=== PATIENT | female | born 1950 | race Caucasian/White ===

== ENCOUNTER → 2017-06-20 | Outpatient (CLI) | payer OTHER ==
[2017-06-20 13:19] LABS: HEMOGLOBIN A1C 6.3 % (4.5-5.6)
[2017-06-20 13:42] LABS: ALBUMIN 3.4 gm/dl (3.4-5.0); ALT/SGPT 18 U/L (12-78); AST/SGOT 17 U/L (15-37); BLOOD UREA NITROGEN 15 mg/dl (7-18); CALCIUM 8.7 mg/dl (8.5-10.1); CARBON DIOXIDE 27 mmol/L (21-32); CHOLESTEROL 130 mg/dl (0-200); CREATININE 0.74 mg/dl (0.60-1.20); GLUCOSE 105 mg/dl (70-99); POTASSIUM 3.9 mmol/L (3.5-5.1); SODIUM 144 mmol/L (136-145)
[2017-06-20 13:53] LABS: ALKALINE PHOSPHATASE 76 U/L (45-117); LDL CHOLESTEROL CALCULATED 67 mg/dl; TOTAL PROTEIN 6.9 gm/dl (6.4-8.2)
== END | disposition home or self-care (01) ==
LOC: C.LABPBG 08:38
PROVIDERS: ATTEND Family Medicine
DX: E03.9 Hypothyroidism, unspecified (principal); R73.03 Prediabetes; E78.5 Hyperlipidemia, unspecified; I10 Essential (primary) hypertension

== ENCOUNTER 2023-07-04 08:10 | Observation (INO) ==
--- NOTE | 2023-06-01 13:14 | PAT Medication Instructions ---
Medication Instructions Date of Service June 01, 2023 Home Medications Medication Instructions Recorded miscellaneous medical supply See Rx Instructions miscellaneous 03/29/19 .COMPLEX #1 ea dicyclomine 10 mg capsule 10 mg PO BID PRN abdominal pain 02/21/23 #180 caps metformin 500 mg tablet 500 mg PO BID #180 tabs 02/21/23 blood sugar diagnostic (Blood #100 ea 03/16/23 Glucose Test strips) lancets 33 gauge #100 ea 03/16/23 cefuroxime axetil 500 mg tablet 500 mg PO BID 7 days #14 tabs 05/08/23 omeprazole 20 mg capsule,delayed 20 mg PO DAILY PRN reflux #90 caps 05/08/23 release cholecalciferol (vitamin D3) 50 mcg (2,000 unit) tablet 2,000 units PO DAILY cyanocobalamin (vitamin B-12) 500 mcg tablet 1,000 mcg PO DAILY acetaminophen 500 mg oral powder packet (Tylenol Extra Strength) 500 mg PO Q6H PRN Pain dicyclomine 10 mg capsule 10 mg PO BID PRN abdominal pain metformin 500 mg tablet 500 mg PO BID cefuroxime axetil 500 mg tablet 500 mg PO BID 7 days omeprazole 20 mg capsule,delayed release 20 mg PO DAILY PRN reflux docusate sodium 100 mg capsule (Colace) 100 mg PO HS PRN Constipation levothyroxine 100 mcg tablet 100 mcg PO QAM lisinopril 10 mg tablet 10 mg PO HS magnesium oxide 250 mg PO DAILY Continue as directed cefuroxime axetil 500 mg tablet 500 mg PO BID 7 days omeprazole 20 mg capsule,delayed release 20 mg PO DAILY PRN reflux (if needed) DO NOT take the morning of surgery cholecalciferol (vitamin D3) 50 mcg (2,000 unit) tablet 2,000 units PO DAILY cyanocobalamin (vitamin B-12) 500 mcg tablet 1,000 mcg PO DAILY dicyclomine 10 mg capsule 10 mg PO BID PRN abdominal pain metformin 500 mg tablet 500 mg PO BID magnesium oxide 250 mg PO DAILY Take morning of surgery With a small sip of water, OTHERWISE NOTHING TO EAT OR DRINK AFTER MIDNIGHT: acetaminophen 500 mg oral powder packet (Tylenol Extra Strength) 500 mg PO Q6H PRN Pain (if needed) levothyroxine 100 mcg tablet 100 mcg PO QAM Take evening before surgery acetaminophen 500 mg oral powder packet (Tylenol Extra Strength) 500 mg PO Q6H PRN Pain (if needed) metformin 500 mg tablet 500 mg PO BID docusate sodium 100 mg capsule (Colace) 100 mg PO HS PRN Constipation (if needed) lisinopril 10 mg tablet 10 mg PO HS dicyclomine 10 mg capsule 10 mg PO BID PRN abdominal pain (if needed) Other Notes If you have any questions please call us at [phone] or [phone] or [phone] or [phone]
--- NOTE | 2023-06-08 12:14 | Anesthesiology Consultation ---
Date of Service June 08, 2023 Assessment & Plan (1) Encounter for pre-operative examination: - check BSG am DOS. - antibodies: per [place] in blood bank they will be able to have blood products available for patient and plan to repeat testing DOS, he advised patient arrive 1 hour earlier than usual. OR and surgeon's office notified. - Outpatient joint assessment: Patient is currently scheduled for inpatient pathway. If re-evaluated and patient/surgeon requests outpatient pathway, patient is not recommended candidate for outpatient joint program from anesthesia standpoint. Chart Review Chart Review: Acceptable Risk for Surgery and Patient seen in Pre Admission Testing Teaching & Discussion Pre-Anesthesia Teaching/Discussion Notes: Instructed NPO after midnight before surgery, except medications with 15 cc of water. Medication instructions provided according to the PAT guidelines. History Surgery Operation Date: 07/04/23 10:40 Proposed Procedures p left Total Hip Arthroplasty - Smith Duran MD Height/Weight Height: 5 ft 5 in Weight: 77.5 kg Allergies Allergy/AdvReac Type Severity Reaction Status Date / Time codeine Allergy Severe Swelling Verified 05/26/23 09:59 of Lip/Tongue/Throat meloxicam [From Mobic] Allergy Intermediate Hives Verified 05/26/23 09:59 nitrofurantoin Allergy Intermediate Gastrointestinal Verified 05/26/23 09:59 [From Macrobid] Upset Sulfa (Sulfonamide Allergy Intermediate Rash Verified 05/26/23 09:59 Antibiotics) sulfamethoxazole Allergy Intermediate Rash Verified 05/26/23 09:59 ciprofloxacin AdvReac Intermediate GI upset Verified 06/08/23 12:22 [id number] Reductase AdvReac Intermediate myalgias Verified 06/08/23 12:24 Inhibitor Medications Home Medications Medication Instructions Recorded Confirmed Last Taken cholecalciferol (vitamin D3) 50 2,000 units PO DAILY #30 tabs 12/06/18 05/26/23 Unknown mcg (2,000 unit) tablet cyanocobalamin (vitamin B-12) 500 1,000 mcg PO DAILY 02/22/19 05/26/23 Unknown mcg tablet miscellaneous medical supply See Rx Instructions miscellaneous 03/29/19 05/26/23 Unknown .COMPLEX #1 ea acetaminophen 500 mg oral powder 500 mg PO Q6H PRN Pain 09/21/21 05/26/23 Unknown packet (Tylenol Extra Strength) dicyclomine 10 mg capsule 10 mg PO BID PRN abdominal pain 02/21/23 05/26/23 Unknown #180 caps metformin 500 mg tablet 500 mg PO BID #180 tabs 02/21/23 05/26/23 Unknown blood sugar diagnostic (Blood #100 ea 03/16/23 04/05/23 Unknown Glucose Test strips) lancets 33 gauge #100 ea 03/16/23 04/05/23 Unknown cefuroxime axetil 500 mg tablet 500 mg PO BID 7 days #14 tabs 05/08/23 05/26/23 Unknown omeprazole 20 mg capsule,delayed 20 mg PO DAILY PRN reflux #90 caps 05/08/23 05/26/23 Unknown release docusate sodium 100 mg capsule 100 mg PO HS PRN Constipation 05/26/23 05/26/23 Unknown (Colace) levothyroxine 100 mcg tablet 100 mcg PO QAM 05/26/23 05/26/23 Unknown lisinopril 10 mg tablet 10 mg PO HS 05/26/23 05/26/23 Unknown magnesium oxide 250 mg PO DAILY 05/26/23 05/26/23 Unknown Additional Notes: Patient also takes ibuprofen. She was instructed to contact surgeon's office regarding ibuprofen. She verbalized understanding and agreement, denied questions or concerns. Past Medical History Medical History Acid reflux controlled, stable per pt Allergic rhinitis Chronic cough non-productive; stable-denies change or worsening per pt Degenerative cervical disc Degenerative joint disease Diverticular disease denies h/o diverticulitis Hyperlipidemia no longer on med, now resolved per pt's PCP Hypertension controlled, stable per pt Hypothyroidism Irritable bowel syndrome Rosacea T2DM (type 2 diabetes mellitus) NIDDM Venous insufficiency (chronic) (peripheral) Patient denies h/o stroke, seizures, heart attack, heart failure, or blood clots/DVTs. Exercise / Class Metabolic Activity II 4-5 Yardwork/Stairs/Walk up hill (denies chest discomfort or shortness of breath with 1 FOS) Past Family History Family History Mother Coronary heart disease History of mastectomy Father Coronary heart disease Patient's father is AGE 72 DUE TO HEART DISEASE Diabetes Hyperlipidemia Hypertension Brother Coronary heart disease Pulmonary fibrosis Aunt Breast cancer Grandmother (Paternal) Myocardial infarction OF [place] @ AGE 50 Daughter Diabetes Denies family history of Ovarian cancer Prostate cancer Colorectal cancer Past Surgical History Surgical History History of colonoscopy History of hip replacement right-2000 History of hysterectomy 1989, one ovary remains History of knee replacement left-2007; right-2016 History of tooth extraction S/P sclerotherapy of varicose veins left leg 1987 Past Anesthesia History No Hx of Anesthesia Complications and No Family Hx of Anesthesia Complications History of PONV No Hx of PONV and No Hx of Motion Sickness Social History Smoking Status: Never smoker Do You Dip or Chew Tobacco: No Hx Alcohol Use: No Hx Substance Use: No substance use type: does not use Review of Systems Patient denies chest pain, shortness of breath, dyspnea on exertion, snoring, witnessed apneas, reflux, fever, chills, wheezing, or palpitations. Physical Exam Vital Signs Vitals BP 122/76 P 84 TEMP 98.3 SP02 95% on RA RESP 18 Physical Patient resting comfortably in chair in no acute distress, alert and oriented, responding appropriately throughout visit Full cervical extension range of motion without pain TMD 3.5 finger breadths Mallampati Score 2 Dentition: full upper dentures, denies chipped or loose teeth, caps/crowns, implants or bridges Lungs: normal respiratory effort. Good air movement, clear throughout to auscultation, no adventitious breath sounds Cardiac: regular rate and rhythm, no murmurs noted Carotid arteries: negative bruit bilat Lab Results Anesthesia Preop Results Results Anesthesia Widget: WBC 7.20 K/ul (4.8-10.8) 06/08/23 Hgb 13.5 g/dl (12.0-16.0) 06/08/23 Hct 40.0 % (37.0-47.0) 06/08/23 Plt 141 K/uL (130-400) 06/08/23 Na 140 mmol/L (136-145) 05/04/23 K 4.2 mmol/L (3.5-5.1) 05/04/23 Cl 105 mmol/L (98-107) 05/04/23 CO2 28 mmol/L (21-32) 05/04/23 BUN 15 mg/dl (6-23) 05/04/23 Creat 0.84 mg/dl (0.6-1.2) 05/04/23 Glucose Level 144 mg/dl (70-99(Fasting)) H 05/04/23 PT 10.8 Seconds (9.0-12.0) 06/08/23 PTT 28 Seconds (21-31) 06/08/23 INR 1.0 (0.9-1.1) 06/08/23 TSH 0.529 uIu/ml (0.300-4.500) 05/04/23 HA1c 6.8 % (4.5-5.6) H 05/04/23 Urine Color Yellow 05/09/23 Urine Appearance Cloudy (Clear) A 05/09/23 Urine pH 5.0 (4.5-7.5) 05/09/23 Urine Specific [place] 1.021 (1.000-1.030) 05/09/23 Urine Protein Negative (Negative) 05/09/23 Urine Glucose (UA) Negative (Negative) 05/09/23 Urine Ketones Negative (Negative) 05/09/23 Urine Blood Negative (Negative) 05/09/23 Urine Nitrite Negative (Negative) 05/09/23 Urine Bilirubin Negative (Negative) 05/09/23 Urine Urobilinogen Negative (Negative) 05/09/23 Urine Leukocyte Esterase Negative (Negative) 05/09/23 Urine WBC (Auto) 1-5 /hpf (0-5) 05/09/23 Urine RBC (Auto) 0-4 /hpf (0-4) 05/09/23 Urine Hyaline Casts (Auto) 0 /lpf (0-5) 05/09/23 Urine Epithelial Cells (Auto) 5-10 /lpf (0-5) H 05/09/23 Urine Bacteria (Auto) Negative (Negative) 05/09/23 Blood Type O Positive 06/08/23 Antibody Screen POSITIVE A 06/08/23 Testing Electrocardiogram Date: 06/08/23 Sinus rhythm with 1st degree AV block, rate 73 bpm Left axis deviation Chest X-Ray Date: 06/08/23 No acute process. Eventration of the right hemidiaphragm. Echocardiogram Date: 06/17/21 EF 55-60% No LV regional wall motion abnormalities Mild cLVH No evidence of mitral valve prolapse
--- NOTE | 2023-07-01 08:20 | History & Physical Report ---
Date of Service July 01, 2023 Assessment & Plan (1) Degenerative joint disease of left hip: 73-year-old female with tiredly petition is status post right hip replacement 23 years years ago and bilateral knee replacements done elsewhere with advanced left hip arthritis. Symptoms are gradually gotten worse over the past year. Pains become more debilitating. She is like to proceed with a left hip replacement. Plan: Plan to take her to the operating room and do a left hip replacement. We are going to plan on using a uncemented stem if possible but will use cemented stem if bone quality is not adequate for this. The risks and benefits of total hip replacement were explained to the patient clued but not limited to DVT PE infection neurological and vascular bleeding palm pain limb range of motion sepsis fairly her symptoms incomplete relief of symptoms dislocation fracture excetra. The patient understands and desires to proceed. Informed consent was obtained. Will do the best we can to make her leg lengths equal. She is diabetic and will use insulin sliding scale coverage. Will use aspirin, teds, SCDs for DVT prophylaxis. Apparently did test positive for some antibodies in her blood. She has to go out, little early to get tested at the day of surgery up. She knows to hold her lisinopril and metformin the morning of surgery. She is planning to be discharged to home using [facility] program and her 's assistance. (2) Status post right hip replacement: (3) History of bilateral knee replacement: (4) Varicose veins of legs: (5) Trochanteric bursitis, right hip: History of Present Illness Chief Complaint: .Left hip pain and discomfort Primary Care Provider: Sara George DO . 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 She has a history of right hip replacement by Dr. Moise on 2000. He is done pretty well from this. Over the past several years she has developed increased pain discomfort in her left hip. Gradually gotten worse over the past a year. She been trying to put this off but pain just getting worse. Scribes groin pain. The more she walks the more she limps. She like to proceed with surgical treatment. Allergies Allergy/AdvReac Type Severity Reaction Status Date / Time codeine Allergy Severe Swelling Verified 05/26/23 09:59 of Lip/Tongue/Throat meloxicam [From Mobic] Allergy Intermediate Hives Verified 05/26/23 09:59 nitrofurantoin Allergy Intermediate Gastrointestinal Verified 05/26/23 09:59 [From Macrobid] Upset Sulfa (Sulfonamide Allergy Intermediate Rash Verified 05/26/23 09:59 Antibiotics) sulfamethoxazole Allergy Intermediate Rash Verified 05/26/23 09:59 ciprofloxacin AdvReac Intermediate GI upset Verified 06/08/23 12:22 Ifcoges-GWF-SfE Reductase AdvReac Intermediate myalgias Verified 06/08/23 12:24 Inhibitor Home Medications Medication Instructions Recorded Confirmed Type cholecalciferol (vitamin D3) 50 2,000 units PO DAILY #30 tabs 12/06/18 05/26/23 History mcg (2,000 unit) tablet cyanocobalamin (vitamin B-12) 500 1,000 mcg PO DAILY 02/22/19 05/26/23 History mcg tablet miscellaneous medical supply See Rx Instructions miscellaneous 03/29/19 05/26/23 Rx .COMPLEX #1 ea acetaminophen 500 mg oral powder 500 mg PO Q6H PRN Pain 09/21/21 05/26/23 History packet (Tylenol Extra Strength) dicyclomine 10 mg capsule 10 mg PO BID PRN abdominal pain 02/21/23 05/26/23 Rx #180 caps metformin 500 mg tablet 500 mg PO BID #180 tabs 02/21/23 05/26/23 Rx blood sugar diagnostic (Blood #100 ea 03/16/23 04/05/23 Rx Glucose Test strips) lancets 33 gauge #100 ea 03/16/23 04/05/23 Rx cefuroxime axetil 500 mg tablet 500 mg PO BID 7 days #14 tabs 05/08/23 05/26/23 Rx omeprazole 20 mg capsule,delayed 20 mg PO DAILY PRN reflux #90 caps 05/08/23 05/26/23 Rx release docusate sodium 100 mg capsule 100 mg PO HS PRN Constipation 05/26/23 05/26/23 History (Colace) levothyroxine 100 mcg tablet 100 mcg PO QAM 05/26/23 05/26/23 History lisinopril 10 mg tablet 10 mg PO HS 05/26/23 05/26/23 History magnesium oxide 250 mg PO DAILY 05/26/23 05/26/23 History Wheeled Walker #1 ea 06/23/23 Rx Past Med/Surg History Medical History Diverticular disease denies h/o diverticulitis Venous insufficiency (chronic) (peripheral) Degenerative cervical disc Chronic cough non-productive; stable-denies change or worsening per pt T2DM (type 2 diabetes mellitus) NIDDM Rosacea Irritable bowel syndrome Hypothyroidism Hypertension controlled, stable per pt Hyperlipidemia no longer on med, now resolved per pt's PCP Degenerative joint disease Allergic rhinitis Acid reflux controlled, stable per pt Surgical History History of colonoscopy History of tooth extraction History of knee replacement left-2007; right-2016 History of hysterectomy 1989, one ovary remains History of hip replacement right-2000 S/P sclerotherapy of varicose veins left leg 1987 Family History Mother Coronary heart disease History of mastectomy Father Coronary heart disease Patient's father is AGE 72 DUE TO HEART DISEASE Diabetes Hyperlipidemia Hypertension Brother Coronary heart disease Pulmonary fibrosis Aunt Breast cancer Grandmother (Paternal) Myocardial infarction OF [place] @ AGE 50 Daughter Diabetes Denies family history of Ovarian cancer Prostate cancer Colorectal cancer Social History Smoking Status: Never smoker Second Hand Exposure: No; Do You Dip or Chew Tobacco: No; Tobacco Cessation Education Requested by Patient: No Hx Alcohol Use: No Hx Substance Use: No Preferred Language: [place] Communication Ability: Effective Visual Impairment: No Limitations Hearing Ability: Normal Software Validation Technician Required: No Beliefs That Will Affect Care: None marital status: Current Living Situation: Spouse current occupational status: retired Other Information That Helps Us Care for You: No Feels Safe at Home: Yes Safety Concerns: Feels Safe At This Time Childhood Exposure to Second-Hand Smoke: Yes Diet: low salt and regular Diet Comment: regular caffeine: Yes (chocolate) during the past year weight has: remained stable Dental Care, Regularly: Yes Physical Activity Frequency: Daily Physical Activity Frequency Comment: house chores Seatbelt Use: always Sunscreen Use: Yes Assistive Devices: Denture - Upper and Glasses Review of Systems All systems reviewed & are unremarkable except as noted in HPI & below. Physical Exam . Physical examination reveals a pleasant middle-aged female. She looks to be in reasonably good health. Examination of left leg reveal patient walks with slightly antalgic gait. Lengths appear clinically equal. She has limited hip motion. She has pain with any type of hip internal rotation. Negative straight leg raise. A little tenderness over the lateral side of her hip. No knee effusion. She is neurologically intact. Well-healed knee incision from previous knee replacement. Constitutional WD/WN, vitals as above Neck trachea midline, no thyromegaly Respiratory normal respiratory effort, lungs clear to auscultation Cardiovascular RRR, no murmur, no edema Gastrointestinal (Abdomen) normal bowel sounds, soft, nontender, no hepatosplenomegaly Results & Data Results & Data Laboratory Results . Diagnostic Findings . X-rays of the left hip were reviewed. Shows fairly advanced left hip arthritis. She is got fairly concentric disease. Complete loss of the joint space. She had diffuse osteopenia. She does have a right hip replacement looks to be acceptable position. He does have some protrusio of the acetabular com ponent. No signs of loosening or wear. PG Care Time/CCT Total # of Minutes Spent Total Time Spent with Patient: Total time spent is greater than 50% in coordination of care (as documented) at patient's floor/unit and/or counseling patient: Coding Level of Care Code None Diagnoses Degenerative joint disease of left hip M16.12 Status post right hip replacement Z96.641 History of bilateral knee replacement Z96.653 Varicose veins of legs I83.93 Trochanteric bursitis, right hip M70.61
[~2023-07-04 08:10] MED LIST: BUPIVACAINE 0.5 % 5 MG/1 ML PF 10ML VIAL ONE
--- NOTE | 2023-07-04 08:34 | History & Physical Bridge Note ---
Date of Service July 04, 2023 History & Physical Bridge Note I have examined the patient, reviewed the History & Physical and in the interval since the performance of the History & Physical I have noted the following changes of clinical significance: no changes noted
[2023-07-04] MEDS: LR 500ML BOLUS, THEN 15ML/HR IV SCH (09:18)
[2023-07-04] MEDS: LR 60ML/HR IV SCH (09:18)
[2023-07-04] MEDS: FAMOTIDINE 20 MG TAB PO SCH (09:41)
[2023-07-04] MEDS: ACETAMINOPHEN 500 MG TAB PO SCH ×2 (09:41→14:47)
[2023-07-04] MEDS: CeleBREX 200 MG CAP PO SCH (09:41)
[2023-07-04] MEDS: METOCLOPRAMIDE HCL 10 MG TABLET PO SCH (09:41)
[2023-07-04] MEDS ORDERED: MIDAZOLAM HCL 1 MG/ML 2ML VIAL ONE (09:43)
[2023-07-04] MEDS ORDERED: fentaNYL citrate PF 100 MCG/2 ML VIAL ONE (09:43)
[2023-07-04] MEDS ORDERED: LIDOCAINE 2% 2 ML VIAL/AMP(20MG/ML) INFIL ONE (10:03)
[2023-07-04] MEDS ORDERED: PROPOFOL IV EMULSION 10 MG/ML 20 ML VIAL IV ONE (10:03)
[2023-07-04] MEDS ORDERED: ePHEDrine sulfate 50 MG/ML AMP IV PRN (10:10)
[2023-07-04] MEDS ORDERED: ATROPINE SULFATE 0.1 MG/ML 10ML SYR IV PRN (10:10)
[2023-07-04] MEDS ORDERED: ONDANSETRON INJ 2 MG/ML 2 ML VIAL IV PRN ×2 (10:10→13:44)
[2023-07-04] MEDS ORDERED: fentaNYL citrate PF 100 MCG/2 ML VIAL IV PRN (10:10)
[2023-07-04] MEDS: TRANEXAMIC ACID 1,000 MG **IV Pre-op IV SCH (10:48)
[2023-07-04] MEDS: ceFAZolin 2000MG 2,000 MG/15 ML SYR IV SCH (11:12)
[2023-07-04] MEDS: BUPIVACAINE/EPINEPHRINE 0.5% MPF 1:200,000 30 ML VIAL ONE (11:41)
[2023-07-04] MEDS ORDERED: ePHEDrine sulfate 50 MG/5 ML SYR ONE (12:18)
--- NOTE | 2023-07-04 12:50 | Operative Report ---
PG Post Operative Report Pre & Post Diagnosis Operation Date: 07/04/23 10:40 Pre-Op Diagnosis: Left Hip Degenerative Joint Disease Post-Op Diagnosis: Left Hip Degenerative Joint Disease I identified the patient and participated in the time-out.: Yes Procedure Operation Date: 07/04/23 10:40 Actual Procedures p Left Total Hip Arthroplasty(Left) - Smith Duran MD Surgeon Smith Duran MD Gun Perforator Ryne Conley PA-C Estimated Blood Loss 200 Findings Consistent with Post-Op Diagnosis Specimens Left femoral head sent for pathology Anesthesia Type Spinal MAC Complications none Disposition Accompanied Patient To Recovery: No Indications Patient is a 73-year-old female whose had a long history of multiple orthopedic arthritic joints and lower extremities. She had both knees replaced as well as the right hip in the past. Over the past several years she is developed increased pain discomfort left hip. X-ray showed advanced left hip arthritis. She failed conservative measures. She would like to proceed with surgical suad atment. Description of Procedure Operative implants consist of: 1 Biomet G7 size 50 mm acetabular shell. 2. [place] gridcap machine operator. 3. 6.5 cancellous acetabular screws 135 mm length 1 to 25 mm length. 4. Highly cross-linked polyethylene liner with a 50 mm outer diam and 36 mm inner diameter. 5. DePuy [place] size 11 KLA femoral stem. 6. +5/36 mm ceramic articular ball. The patient was taken the op room, identified, placed on the operating table in the supine position. All contact areas were properly padded. IV antibiotics tried by anesthesia team. A spinal anesthetic and been implemented in the holding area. Crooks catheter was then placed in sterile fashion. The patient then placed in the right lateral decubitus position. An axillary roll was placed. Stulberg hip positioner was used for positioning. Left hip and leg were then prepped and draped in usual sterile fashion. A posterior lateral approach to the left hip was then performed to a curvilinear incision centered over the greater trochanter. Sharp dissection was carried through subcutaneous tissue down to level the IT band gluteal fascia the IT band gluteal fascia incised longitudinally in line with skin incision. The underlying greater bursa was excised. The piriformis and external rotators along with the posterior hip joint capsule were then released in the posterior aspect the hip as a single layer. Hip was internally rotated and dislocated. Femoral neck osteotomy cut was made with a Final Cut about 7 mm above the lesser trochanter. Femoral head was removed. The femur was retracted anteriorly. Attention drawn the acetabulum. The acetabular labrum was excised. The pulmonary fat was excised. Sequential reaming the acetabular was then performed again with size 43 and progressing up to a 49. I reamed a little bit with a 50 reamer and then placed a 50 mm Biomet G7 acetabular shell in about 40 degrees lateral opening and 20 degrees of anteversion. It was fixed with two 6.5 cancellous screws. Trial liner was placed. Attention drawn the femur. The proximal femur General with a [employer] cutter followed by canal finder. I then broached beginning size 8 and progressed up to 11. Get excellent fit 11. We trialed the hip and the +5 articular ball was fully stable full extension and external rotation and flexion to 90 degrees internal Tatian over 50 degrees. Soft tissue tension seemed appropriate. Leg lengths appeared equal. We elect to place these implants. All trial implants were removed. [place] hole general engineer was placed. Highly cross- linked polyethylene liner was placed. A size 11 KLA femoral stem was impacted in position. +5/36 mm ceramic articular ball was placed. Hip was located and once again found to be stable. Attention drawn toward closing. The wound was irrigated coconuts pulsatile lavage solution. I did inject locally with 60 cc of half percent Marcaine with epinephrine. Posterior capsule and external rotators then repaired through drill holes in the posterior trochanter with #2 Tycron suture. The IT band gluteal fascia was then closed in 1 PDS suture running fashion through subcutaneous tissues then closed with 2 layers the deep layer #2 Vicryl suture and subcutaneous tissues with 2-0 Dexon suture in a buried interrupted fashion. The skin was then closed with skin chad. Leg was then cleaned and dried and sterile Prevena VAC dressing was applied. The patient was then transferred to the recovery room in stable condition. Patient tolerated procedure well and there were no complications. Ryne Conley, my physician certified registered dental assistant, was present for the entire procedure. His assistance was essential and required for appropriate patient positioning, prepping and draping, surgical exposure, performing the technical details of the operation, placement the implants, closure of the wound, and placement of the sterile bandage. I attest to the content of the Intraoperative Record and any orders documented therein. Any exceptions are noted below.
--- NOTE | 2023-07-04 13:23 | Anesthesiology Progress Note ---
Date of Service July 04, 2023 Anesthesia Post Procedure Vital Signs Vital Signs: Temp Pulse Pulse Resp BP Pulse Ox O2 Del Method 07/04/23 13:10 69 19 101/56 L 94 Room Air 07/04/23 13:00 63 18 104/52 L 94 Room Air 07/04/23 12:50 68 16 109/73 99 Oxymask 07/04/23 12:44 36.2 C L 78 22 109/55 L 97 Oxymask 07/04/23 09:20 36.6 C 76 20 120/76 96 Room Air O2 Flow Rate 07/04/23 13:10 07/04/23 13:00 07/04/23 12:50 7 07/04/23 12:44 7 07/04/23 09:20 Pain Intensity Left Hip: Pain Intensity: 8 Transfer of Care Handoff Completed per policy Notes Mental Status: alert / awake / arousable Patient Amnestic to Procedure: Yes Nausea / Vomiting: adequately controlled Pain: adequately controlled Airway Patency, RR, SpO2: stable & adequate BP & HR: stable & adequate Hydration State: stable & adequate Neuraxial Anesthesia: was administered and sensory block is resolving Anesthetic Complications: no major complications apparent
[2023-07-04] MEDS ORDERED: MAGNESIUM HYDROXIDE SUSP 30 ML UDC PO PRN (13:44)
[2023-07-04] MEDS ORDERED: METOCLOPRAMIDE HCL INJ 5 MG/ML 2 ML VIAL IV PRN (13:44)
[2023-07-04] MEDS ORDERED: NALOXONE HCL 0.4 MG/1 ML VIAL/CARP IV PRN (13:44)
[2023-07-04] MEDS ORDERED: DICYCLOMINE HCL 10 MG CAP PO PRN (13:44)
[2023-07-04] MEDS ORDERED: ALUMINUM/MAGNESIUM SUSP 30 ML UDC PO PRN (13:44)
[2023-07-04] MEDS ORDERED: bisacodyL 10 MG SUPP PR PRN (13:44)
[2023-07-04] MEDS ORDERED: HYDROmorphone INJ 0.5 MG/0.5 ML SYR IV PRN (13:44)
[2023-07-04] MEDS ORDERED: NON-FORMULARY MEDICATION (Miscellaneous Medical Supply misc) MS SCH (13:44)
[2023-07-04] MEDS ORDERED: PHARMACY GLYCEMIC MGMT CONSULT PRN (13:44)
[2023-07-04] MEDS ORDERED: DOCUSATE SODIUM 100 MG CAP PO PRN (13:44)
[2023-07-04] MEDS ORDERED: PANTOprazole 40 MG TAB PO PRN (13:49)
[2023-07-04] MEDS ORDERED: ACETAMINOPHEN 500 MG TAB PO SCH (14:00)
--- NOTE | 2023-07-04 14:24 | XRay Report ---
XR hip 1V LT w pelvis CLINICAL HISTORY: Postoperative evaluation. COMPARISON: Left hip radiographs May 25, 2023. FINDINGS: Alignment of the total left hip arthroplasty is anatomic. There is no periprosthetic fract ure or unexpected radiopaque foreign body. Skin chad are present. There is a surgical drain. Right hip arthroplasty is again noted. IMPRESSION: Expected findings following total left hip arthroplasty. ACT 112: Negative or not required by law. Electronically signed by: Mart Ramirez M.D. 07/04/2023 2:23 PM
[2023-07-04] MEDS: SODIUM CHLORIDE 0.9% 1,000 ML IV SCH (14:30)
--- NOTE | 2023-07-04 14:38 | Pharmacy Report ---
Pharmacy Glycemic Short Note 2 - Date of Service July 04, 2023 - Glycemic Short BSG Results (Last 24 hours): 07/04/23 07/04/23 09:10 12:49 POC Glucose 128 H 133 H OUTPATIENT ANTIDIABETIC REGIMEN: * Metformin 500 mg BID ASSESSMENT: * 73 year old female, s/p hip surgery post op day 0. Pharmacy consulted to manage blood sugars post op. Post op blood sugar result = 133. No steriods given during surgery. Plan to start conservatively, only Novolog for today. PLAN FOR INPATIENT GLYCEMIC CONTROL: * Hold outpatient oral diabetes medications * Hold Basal insulin * Bolus insulin * NovoLog per scale ACHS or Q6hrs while NPO * Goal Range: Low 110 mg/dL - High 140 mg/dL * Correction Factor: 30 mg/dL/unit * Nutritional / Prandial insulin per carb ratio of 1 unit per 20 grams CHO consumed
[2023-07-04] MEDS ORDERED: CARBOHYDRATES FOR HYPOGLYCEMIA PO PRN (14:45)
[2023-07-04] MEDS ORDERED: GLUCOSE 10 TAB/TUBE PO PRN (14:45)
[2023-07-04] MEDS ORDERED: DEXTROSE 50% 50 ML SYRINGE IV PRN (14:45)
[2023-07-04] MEDS ORDERED: GLUCOSE 40% GEL 15 GM TUBE PO PRN (14:45)
[2023-07-04] MEDS ORDERED: GLUCAGON FOR INJ 1 MG VIAL IM PRN (14:45)
[2023-07-04] MEDS: traMADol HCL 50 MG TABLET PO PRN (15:35)
[2023-07-04] MEDS: KETOROLAC TROMETHAMINE 15 MG/ML VIAL IV SCH (16:40)
[2023-07-04] MEDS: ASCORBIC ACID 500 MG TAB PO SCH (16:42)
[2023-07-04] MEDS: INSULIN ASPART PER UNIT CHARGE SC SCH (17:03)
[2023-07-04] MEDS: TRANEXAMIC ACID / 0.7% NACL 1,000 MG/100 ML BAG IV SCH (18:26)
[2023-07-04] MEDS: ceFAZolin 1000MG 1,000 MG/7.5 ML SYR IV SCH (18:26)
[2023-07-04] MEDS: ASPIRIN 81 MG ECTAB PO SCH (21:26)
[2023-07-04] MEDS: SENNA 8.6 MG TAB PO SCH ×2 (21:26)
[2023-07-04] MEDS: lisinopril 10 MG TAB PO SCH (22:02)
[2023-07-04] MEDS: DOCUSATE SODIUM 100 MG CAP PO SCH (22:03)
[2023-07-05] MEDS: LEVOTHYROXINE SODIUM 100 MCG TABLET PO SCH (05:59)
[2023-07-05 06:46] LABS: Basophils # (auto) 0.06 K/uL (0.00-0.20); Basophils % (auto) 0.7 %; Eosinophils # (auto) 0.13 K/uL (0.00-0.50); Eosinophils % (auto) 1.6 %; Hematocrit (blood only) 32.6 % (37.0-47.0); Hemoglobin 10.8 g/dl (12.0-16.0); Immature Granulocytes # (auto) 0.03 K/uL (0.01-0.20); Immature Granulocytes % (auto) 0.4 %; Lymphocytes # (auto) 1.77 K/uL (1.20-3.40); Lymphocytes % (auto) 21.7 %; Mean Corpuscular Hemoglobin 30.7 pg (25.0-34.0); Mean Corpuscular Hgb Conc 33.1 g/dL (32.0-36.0); Mean Corpuscular Volume 92.6 fL (80.0-100.0); Mean Platelet Volume 11.8 fL (9.4-12.4); Monocytes % (auto) 7.3 %; Neutrophils # (auto) 5.58 K/uL (1.40-6.50); Neutrophils % (auto) 68.3 %; Platelet Count 115 K/uL (130-400); RDW Coefficient of Variation 13.6 % (11.5-14.5); Red Blood Count 3.52 M/uL (4.20-5.40); White Blood Count 8.17 K/ul (4.8-10.8)
[2023-07-05 07:06] LABS: BUN Creatinine Ratio 21.5 (10-20); Creatinine Clr Calc Pharmacy 76.5 ml/min; Est GFR (African American) 100.7 ml/min; Est GFR (Non-African American) 86.8 ml/min; Potassium 4.1 mmol/L (3.5-5.1)
[2023-07-05] MEDS: dexAMETHasone 10 MG in SYRINGE 0 ML IV SCH (08:27)
[2023-07-05] MEDS: MULTIVITAMIN TAB PO SCH (08:29)
[2023-07-05] MEDS: CHOLECALCIFEROL 25 MCG (1000 UNITS) TAB PO SCH (08:29)
[2023-07-05] MEDS: MAGNESIUM OXIDE 400 MG TAB PO SCH (08:29)
[2023-07-05] MEDS: CYANOCOBALAMIN (B-12) 500 MCG TABLET PO SCH (09:18)
--- NOTE | 2023-07-05 10:32 | Pharmacy Report ---
Pharmacy Glycemic Short Note 2 - Date of Service July 05, 2023 - Glycemic Short BSG Results (Last 24 hours): 07/04/23 07/04/23 07/04/23 12:49 16:22 20:55 Glucose POC Glucose 133 H 133 H 115 H 07/05/23 07/05/23 06:17 07:10 Glucose 136 H POC Glucose 127 H OUTPATIENT ANTIDIABETIC REGIMEN: * Metformin 500 mg BID * A1c = 6.8% (05/04/23) ASSESSMENT: 07/04: * POD # 2 s/p L hip surgery * Donna demonstrated excellent glycemic control with little insulin yesterday; BSGs 128, 133, 133, 115 mg/dL. * She is to receive a one time dose of dexamethasone IV this morning. I anticipate post prandial BSG elevation. * She is tolerating an oral diet and renal function is at baseline, therefore I will resume home dose of metformin 07/03: * 73 year old female, s/p hip surgery post op day 0. Pharmacy consulted to manage blood sugars post op. Post op blood sugar result = 133. No steriods given during surgery. Plan to start conservatively, only Novolog for today. PLAN FOR INPATIENT GLYCEMIC CONTROL: * Hold outpatient oral diabetes medications * Hold Basal insulin * Bolus insulin * NovoLog per scale ACHS or Q6hrs while NPO * Goal Range: Low 110 mg/dL - High 140 mg/dL * Correction Factor: 30 mg/dL/unit * Nutritional / Prandial insulin per carb ratio of 1 unit per 20 grams CHO consumed
[2023-07-05] MEDS: metFORMIN HCL 500 MG TAB PO SCH (10:45)
--- NOTE | 2023-07-05 11:05 | Surgery Progress Note ---
Date of Service July 05, 2023 Assessment & Plan (1) Status post left hip replacement: Plan: 73-year-old female postop day 1 from a left hip replacement doing pretty well. Pains controlled. Hips located. She is neurologically intact. She is open to go home. Therapy went well. Plan: 1. DVT prophylaxis including thigh-high teds, SCDs, aspirin twice a day. 2. PT/OT. Weight-bear as tolerated left total hip protocol. 3. Pain control doing okay with current pain regimen. 4. Disposition plan to discharge home with some home health today. (2) History of bilateral knee replacement: (3) Status post right hip replacement: Admission and Anticipated Discharge Date Admission Date: July 04, 2023 Subjective 73-year-old female postop day 1 from a left total hip replacement. She is doing pretty well. Just finished therapy. She did pretty well. Pains controlled. She is hoping to go home today. Physical Exam Physical Exam: Physical examination is a pleasant middle-age female. She sitting up in her bedside chair talking to her family. She looks comfortable pair examination of the hip reveals the Prevena VAC dressing to be in place. Thigh is soft and supple. Leg lengths are equal. Hips located. She is neurologically intact. Respiratory: normal respiratory effort, lungs clear to auscultation Cardiovascular: RRR, no murmur, no edema Gastrointestinal (Abdomen): normal bowel sounds, soft, nontender, no hepatosplenomegaly Results & Data Vital Signs (Past 12 Hours) Vital Signs Temp Pulse Pulse Resp BP Pulse Ox O2 Del Method 07/05/23 07:32 36.7 C 91 H 20 104/65 95 Room Air 07/05/23 07:00 36.7 C 87 16 124/73 94 Room Air 07/05/23 02:53 36.6 C 64 16 115/69 95 Room Air 07/04/23 23:19 36.8 C 101 H 16 117/72 96 Room Air Laboratory Results Hemoglobin is 10.8. Hematocrit is 32.6. Electrolytes are stable. PG Care Time/CCT Total # of Minutes Spent Total Time Spent with Patient: Total time spent is greater than 50% in coordination of care (as documented) at patient's floor/unit and/or counseling patient: Coding Level of Care Code 96805 Post Operative Follow-Up Diagnoses Status post left hip replacement Z96.642 History of bilateral knee replacement Z96.653 Status post right hip replacement Z96.641
[2023-07-05] MEDS ORDERED: ACETAMINOPHEN 500 MG TAB PO SCH (14:00)
--- NOTE | 2023-07-12 10:50 | Discharge Summary ---
Date of Service July 12, 2023 Discharge Data Procedures Performed Operation Date: 07/04/23 10:40 Actual Procedures p Left Total Hip Arthroplasty(Left) - Smith Duran MD Hospital Course (1) Status post left hip replacement: This is a 73 year old patient admitted on 07/04/23 and underwent total hip arthroplasty. She tolerated the procedure well and there were no complications. Transferred to the PACU post op and later to the orthopedic floor for further care. She was given ancef for antibiotic prophylaxis. She was also given VINNIE stockings, SCDs, and aspirin for DVT prophylaxis. Hemoglobin, hematocrit, and vital signs were monitored during her hospital stay and remained stable. Did not require any blood transfusions. There were no complications during her hospital stay. By post op day #1 the patient was tolerating a diabetic diet, pain was reasonably controlled with oral pain medicine, and she was participating in physical therapy. On post op day #1 the patient was discharged home and set up with home health care. She was given printed discharge instructions including prescriptions for extra strength tylenol, aspirin, ketorolac, zofran, senokot, and tramadol. Continue hip precautions. Continue physical therapy, weight bearing as tolerated. Continue VINNIE stockings. Follow up approximately 2 weeks post op or sooner if there are problems or concerns. Coding Level of Care Code None Diagnoses Status post left hip replacement Z96.642
== END 2023-07-05 11:47 | disposition home health service (06) ==
LOC: 3E 08:10 → ASU 08:10
DX: Z79.890 Hormone replacement therapy; M16.12 Unilateral primary osteoarthritis, left hip; Z79.84 Long term (current) use of oral hypoglycemic drugs; Z79.899 Other long term (current) drug therapy; Z79.82 Long term (current) use of aspirin; E03.9 Hypothyroidism, unspecified; Z88.8 Allergy status to other drugs, medicaments and biological substances; Z88.5 Allergy status to narcotic agent; K21.9 Gastro-esophageal reflux disease without esophagitis; I10 Essential (primary) hypertension; Z88.2 Allergy status to sulfonamides; M70.61 Trochanteric bursitis, right hip; Z96.653 Presence of artificial knee joint, bilateral; I83.90 Asymptomatic varicose veins of unspecified lower extremity; E11.9 Type 2 diabetes mellitus without complications; Z96.641 Presence of right artificial hip joint

== ENCOUNTER 2024-02-24 15:47 | Inpatient (IN) ==
[2024-02-24 16:31] LABS: Hematocrit (blood only) 43.4 % (37.0-47.0); Hemoglobin 14.2 g/dl (12.0-16.0); Mean Corpuscular Hgb Conc 32.7 g/dL (32.0-36.0); Mean Corpuscular Volume 91.8 fL (80.0-100.0); Mean Platelet Volume 11.7 fL (9.4-12.4); Platelet Count 171 K/uL (130-400); RDW Coefficient of Variation 14.2 % (11.5-14.5); Red Blood Count 4.73 M/uL (4.20-5.40); White Blood Count 9.12 K/ul (4.8-10.8)
[2024-02-24 16:50] LABS: Albumin Globulin Ratio 1.4 (0.9-2); Albumin Level 4.2 gm/dl (3.4-5.0); BUN Creatinine Ratio 16.7 (10-20); Bilirubin,Total 0.7 mg/dl (0.2-1.0); Calcium 9.5 mg/dl (8.6-10.3); Creatinine Clr Calc Pharmacy 55.8 ml/min; Magnesium 1.6 mg/dl (1.7-2.4); Total Protein 7.2 gm/dl (6.0-8.3)
--- NOTE | 2024-02-24 16:54 | XRay Report ---
Chest radiograph, one view History: Chest pain Comparison: None Findings: Single AP view of the chest performed. No focal consolidation or pleural effusion. No pneumothorax. The cardiomediastinal silhouette is within normal limits. Normal pulmonary vascularity. No evidence for lymphadenopathy. No visualized bony or soft tissue abnormality. Impression: Normal chest radiograph Electronically signed by Dom Talamantes 02-24-2024 4:53 PM
--- NOTE | 2024-02-24 16:54 | CT Scan Report ---
CT head without contrast History: Confusion Comparison: None Technique: Using multidetector thin collimation helical acquisition technique, axial, coronal and sagittal CT images from the skull base to the vertex were obtained without intravenous contrast. Dose reduction techniques were achieved by using automatic exposure control and/or adjustment of mA and/or kV according to patient size and/or use of iterative reconstruction technique. Findings: No intracranial hemorrhage, mass-effect, or midline shift. The ventricles are proportionate to the cerebral sulci. 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 Chronic lacunar infarct in the periventricular left frontal lobe white matter. Moderate age-related changes. No convincing evidence for acute infarct. The basal cisterns are patent. The visualized paranasal sinuses are clear. Mastoid air cells are clear. Impression: No acute intracranial pathology. Electronically signed by Dom Talamantes 02-24-2024 4:53 PM
[2024-02-24 16:56] LABS: Appearance Urine Clear (Clear); Bacteria Urine Automated None Seen (None Seen); Bilirubin Urine Negative (Negative); Blood Urine Negative (Negative); Cast Urine Automated 0-2 /lpf (0-2); Color Urine Yellow; Epithelial Cell Urine Auto 0-2 /hpf (0-2); Glucose Urine UA Negative (Negative); Ketones Urine Negative (Negative); Leukocyte Esterase Urine Trace (Negative); Nitrite Urine Negative (Negative); Protein Urine Negative (Negative); RBC Urine Automated 0-2 /hpf (0-2); Specific Gravity Urine 1.009 (1.000-1.030); Urobilinogen Urine Negative (Negative); WBC Urine Automated 0-5 /hpf (0-5); pH Urine 5.5 (4.5-7.5)
[2024-02-24 17:01] LABS: Partial Thromboplastin Time 26 Seconds (21-31); Prothrombin Time 10.8 Seconds (9.0-12.0)
--- NOTE | 2024-02-24 17:03 | Emergency Department Note ---
Impression & Plan Acute confusion, Word finding problem, Stroke-like symptoms ED Provider Note NAME: LUCILLE DE DIOS AGE: 74 SEX: F : 1950 ARRIVES VIA: Walk-In INFORMANT: [Patient][daughter] ED PROVIDER(S): [Mario Du MD] CHIEF COMPLAINT: Confusion HISTORY OF PRESENT ILLNESS: The patient is a 74-year-old female who presents with confusion and difficulty finding her words. This has been ongoing since the second, she has had issues now for 2 days. There has been no difficulty with gait, no arm or leg weakness. No slurring of the speech. She has not had cough, cold or congestion. No headache, no fever or chills. The patient felt bit worse around noon today and went to urgent care with family, she was referred to the ER. The family believes she may have a UTI as she has had confusion in the past with urinary tract infections. The patient currently complains of urinary frequency but this is fairly normal for her, no burning with urination. PMHx/PSHx/Social Hx: See Below PHYSICAL EXAM: GENERAL: Patient is in no acute distress. HEENT: No acute trauma, normocephalic atraumatic, mucous membranes moist, no nasal congestion. NECK: No stridor, no adenopathy, no meningismus, trachea is midline. LUNGS: Clear to auscultation bilaterally, no wheeze, no rhonchi, breath sounds equal. HEART: Without murmurs gallops or rubs, regular rate and rhythm. ABDOMEN: Soft, nontender, no peritonitis. EXTREMITIES: No cyanosis, full range of motion of all the joints without pain or difficulty. NEUROLOGIC: Oriented x 3, no extremity drift or cerebellar dysfunction. No speech slur but she does have difficulty finding her words when speaking. No facial droop. SKIN: No jaundice, no diaphoresis. DIFFERENTIAL DIAGNOSIS: TIA, stroke, intracranial bleeding, electrolyte imbalance, UTI, among others. EMERGENCY DEPARTMENT PROCEDURES: MEDICAL DECISION MAKING: There is no leukocytosis or concerning anemia. There is a normal platelet count. No coagulopathy. No renal failure. Magnesium was somewhat low at 1.6. No concerning liver enzyme elevation. The patient appeared to be in a euthyroid state. Urinalysis does not show findings of infection. Brain CT shows no acute bleed or mass effect. Chest x-ray does not show pneumonia or CHF. CT angio of the head and neck were performed, there was no significant stenosis or clot. On exam, the patient did have a hard time finding her words when speaking but, no other neurologic deficits were found. Her vital signs were essentially unremarkable. The patient was given a liter of IV saline for hydration. She was given IV magnesium for the lower magnesium value. She was given oral aspirin and oral Plavix. I did discuss the case with [place] stroke neurology. Further stroke workup inpatient was recommended. Aspirin and Plavix orally was recommended. I spoke with the patient and family. I spoke with case management. The on-call hospitalist was consulted. Prior/Outside records/notes reviewed: None ECG per my interpretation: Indication was possible stroke. The ECG shows a normal sinus rhythm with a rate of 60. LVH is present. There is poor R wave progression. No acute ST elevation. No PVCs. QTc is 416. Continuous Cardiac Monitoring per my interpretation: An order was placed for continuous cardiac monitoring. The monitor shows a rate of 95 with normal sinus rhythm. Imaging/x-ray results per my interpretation: Chest x-ray does not show mediastinal widening, pneumonia or pneumothorax. Chronic Medical/Social conditions affecting care: Advanced age. Care/Management discussed with: Case management, the on-call hospitalist. [facility] stroke neurology-Dr. Miranda Level of care consideration(s): After review of the information above and other included data: --I believe the patient requires escalation of care to admission DISPOSITION: Admission Past Med/Surg History Problem List Stroke-like symptoms (Acute) Word finding problem (Acute) Acute confusion (Acute) Acute CVA (cerebrovascular accident) Urinary incontinence, urge (Chronic) Osteoarthritis Daytime somnolence Statin intolerance Venous insufficiency (chronic) (peripheral) Degenerative cervical disc B12 deficiency Chronic cough non-productive; stable-denies change or worsening per pt T2DM (type 2 diabetes mellitus) NIDDM Vitamin D deficiency Rosacea Irritable bowel syndrome Hypothyroidism Hypertension controlled, stable per pt Hyperlipidemia no longer on med, now resolved per pt's PCP Degenerative joint disease Allergic rhinitis Acid reflux controlled, stable per pt Medical History Trochanteric bursitis, right hip Degenerative joint disease of left hip Varicose veins of legs Diverticular disease denies h/o diverticulitis Surgical History Status post right hip replacement (2000) History of left hip replacement (06/2023) History of colonoscopy History of tooth extraction History of knee replacement History of hysterectomy S/P sclerotherapy of varicose veins Family History Mother Coronary heart disease History of mastectomy Father Coronary heart disease Patient's father is Diabetes Hyperlipidemia Hypertension Brother Coronary heart disease Pulmonary fibrosis Aunt Breast cancer Grandmother (Paternal) Myocardial infarction Daughter Diabetes Denies family history of Ovarian cancer Prostate cancer Colorectal cancer Social History Smoking Status: Never smoker Second Hand Exposure: No; Do You Dip or Chew Tobacco: No; Hx Alcohol Use: No Hx Substance Use: No Preferred Language: [place] Communication Ability: Effective Visual Impairment: No Limitations Hearing Ability: Normal Tire Mechanic Required: No Beliefs That Will Affect Care: None marital status: Current Living Situation: Spouse current occupational status: retired Feels Safe at Home: Yes Childhood Exposure to Second-Hand Smoke: Yes Diet: low salt and regular Diet Comment: regular caffeine: Yes (chocolate) during the past year weight has: remained stable Dental Care, Regularly: Yes Physical Activity Frequency: Daily Physical Activity Frequency Comment: house chores Seatbelt Use: always Sunscreen Use: Yes Assistive Devices: Walker Allergies Allergies Allergy/AdvReac Type Severity Reaction Status Date / Time codeine Allergy Severe Swelling Verified 01/23/24 10:30 of Lip/Tongue/Throat meloxicam [From Mobic] Allergy Intermediate Hives Verified 01/23/24 10:30 nitrofurantoin Allergy Intermediate Gastrointestinal Verified 01/23/24 10:30 [From Macrobid] Upset Sulfa (Sulfonamide Allergy Intermediate Rash Verified 01/23/24 10:30 Antibiotics) sulfamethoxazole Allergy Intermediate Rash Verified 01/23/24 10:30 ciprofloxacin AdvReac Intermediate GI upset Verified 01/23/24 10:30 [id number] Reductase AdvReac Intermediate myalgias Verified 01/23/24 10:30 Inhibitor Home Meds Home Medications Medication Instructions Recorded Confirmed cholecalciferol (vitamin D3) 50 2,000 units PO DAILY #30 tabs 12/06/18 02/24/24 mcg (2,000 unit) tablet cyanocobalamin (vitamin B-12) 500 1,000 mcg PO DAILY 02/22/19 02/24/24 mcg tablet docusate sodium 100 mg capsule 100 mg PO HS PRN Constipation 05/26/23 02/24/24 (Colace) miscellaneous medical supply 02/24/24 02/24/24 Previous Rx's Medication Instructions Recorded dicyclomine 10 mg capsule 10 mg PO BID PRN abdominal pain 02/21/23 #180 caps metformin 500 mg tablet 500 mg PO BID #180 tabs 02/21/23 blood sugar diagnostic (Blood #100 ea 03/16/23 Glucose Test strips) lancets 33 gauge #100 ea 03/16/23 omeprazole 20 mg capsule,delayed 20 mg PO DAILY PRN reflux #90 caps 05/08/23 release Wheeled Walker #1 ea 06/23/23 lisinopril 10 mg tablet 10 mg PO HS #90 tabs 07/03/23 levothyroxine 88 mcg tablet 88 mcg PO DAILY #90 tabs 11/06/23 Results & Data (ED) Vital Signs Vital Signs - 24 hr 02/24/24 15:52 02/24/24 16:45 02/24/24 16:45 Temperature 36.5 C Temperature Source Temporal Artery Scan Pulse Rate 66 95 H Pulse Rate [Apical] 94 H Pulse Rate from SpO2 Sensor Pulse Rhythm Regular Pulse Strength Normal Respiratory Rate 18 18 Respiratory Effort / Characteristics Non-Labored Spontaneous Respiratory Depth Normal Blood Pressure 158/86 H Blood Pressure [Left Arm] 164/74 H Blood Pressure Mean 110 Blood Pressure Mean [Left Arm] 104 Blood Pressure Position Sitting Pulse Oximetry 97 96 96 Oxygen Delivery Method Room Air Room Air Sepsis Recent Fever Within 48 Hours No Sepsis New/Unexplained Change in Mental Status N/A Sepsis Action Taken by Nursing No Action Required 02/24/24 17:14 02/24/24 17:14 02/24/24 17:14 Temperature Temperature Source Pulse Rate 67 Pulse Rate [Apical] Pulse Rate from SpO2 Sensor Pulse Rhythm Pulse Strength Respiratory Rate Respiratory Effort / Characteristics Respiratory Depth Blood Pressure 137/80 137/80 Blood Pressure [Left Arm] Blood Pressure Mean 84 84 Blood Pressure Mean [Left Arm] Blood Pressure Position Pulse Oximetry Oxygen Delivery Method Sepsis Recent Fever Within 48 Hours Sepsis New/Unexplained Change in Mental Status Sepsis Action Taken by Nursing 02/24/24 17:14 02/24/24 17:18 02/24/24 17:22 Temperature Temperature Source Pulse Rate 66 Pulse Rate [Apical] 71 Pulse Rate from SpO2 Sensor Pulse Rhythm Pulse Strength Respiratory Rate 24 18 Respiratory Effort / Characteristics Respiratory Depth Blood Pressure 137/80 Blood Pressure [Left Arm] 137/81 Blood Pressure Mean 84 Blood Pressure Mean [Left Arm] 99 Blood Pressure Position Pulse Oximetry 98 Oxygen Delivery Method Sepsis Recent Fever Within 48 Hours Sepsis New/Unexplained Change in Mental Status Sepsis Action Taken by Nursing 02/24/24 17:51 02/24/24 18:00 02/24/24 18:00 Temperature Temperature Source Pulse Rate 59 L 59 L Pulse Rate [Apical] Pulse Rate from SpO2 Sensor 72 58 L Pulse Rhythm Pulse Strength Respiratory Rate 18 24 Respiratory Effort / Characteristics Respiratory Depth Blood Pressure 112/69 Blood Pressure [Left Arm] Blood Pressure Mean 100 Blood Pressure Mean [Left Arm] Blood Pressure Position Pulse Oximetry 91 96 Oxygen Delivery Method Sepsis Recent Fever Within 48 Hours Sepsis New/Unexplained Change in Mental Status Sepsis Action Taken by Nursing 02/24/24 18:21 02/24/24 18:33 Temperature Temperature Source Pulse Rate 57 L 56 L Pulse Rate [Apical] Pulse Rate from SpO2 Sensor 58 L 54 L Pulse Rhythm Pulse Strength Respiratory Rate 30 H 17 Respiratory Effort / Characteristics Respiratory Depth Blood Pressure Blood Pressure [Left Arm] Blood Pressure Mean Blood Pressure Mean [Left Arm] Blood Pressure Position Pulse Oximetry 98 97 Oxygen Delivery Method Sepsis Recent Fever Within 48 Hours Sepsis New/Unexplained Change in Mental Status Sepsis Action Taken by [facility] Medications Current Medication List: was personally reviewed by me Laboratory Data Attestation: I reviewed the patient's lab results. 02/24/24 16:06 02/24/24 16:06 Lab Results 02/24/24 02/24/24 Range/Units 16:06 16:12 WBC 9.12 (4.8-10.8) K/ul RBC 4.73 (4.20-5.40) M/uL Hgb 14.2 (12.0-16.0) g/dl Hct 43.4 (37.0-47.0) % MCV 91.8 (80.0-100.0) fL MCH 30.0 (25.0-34.0) pg MCHC 32.7 (32.0-36.0) g/dL RDW Std Deviation 48.0 H (36.4-46.3) fL RDW Coeff of Clementina 14.2 (11.5-14.5) % Plt Count 171 (130-400) K/uL MPV 11.7 (9.4-12.4) fL PT 10.8 (9.0-12.0) Seconds INR 1.0 (0.9-1.1) APTT 26 (21-31) Seconds PTT Ratio 1.0 Sodium 139 (136-145) mmol/L Potassium 4.0 (3.5-5.1) mmol/L Chloride 103 (98-107) mmol/L Carbon Dioxide 28 (21-32) mmol/L Anion Gap 8 (3-11) BUN 14 (6-23) mg/dl Creatinine 0.84 (0.6-1.2) mg/dl Est Cr Clr Drug Dosing 55.8 ml/min eGFR 71.97 BUN/Creatinine Ratio 16.7 (10-20) Glucose 105 H (70-99(Fasting)) mg/dl Calcium 9.5 (8.6-10.3) mg/dl Magnesium 1.6 L (1.7-2.4) mg/dl Total Bilirubin 0.7 (0.2-1.0) mg/dl AST 14 (13-39) U/L ALT 10 (7-52) U/L Alkaline Phosphatase 65 (34-104) U/L Total Protein 7.2 (6.0-8.3) gm/dl Albumin 4.2 (3.4-5.0) gm/dl Globulin 3.0 (2.5-4.0) gm/dl Albumin/Globulin Ratio 1.4 (0.9-2) TSH 3.772 (0.300-4.500) uIu/ml Urine Color Yellow Urine Appearance Clear (Clear) Urine pH 5.5 (4.5-7.5) Ur Specific Da[place]hin 1.009 (1.000-1.030) Urine Protein Negative (Negative) Urine Glucose (UA) Negative (Negative) Urine Ketones Negative (Negative) Urine Blood Negative (Negative) Urine Nitrite Negative (Negative) Urine Bilirubin Negative (Negative) Urine Urobilinogen Negative (Negative) Ur Leukocyte Esterase Trace H (Negative) Urine WBC (Auto) 0-5 (0-5) /hpf Urine RBC (Auto) 0-2 (0-2) /hpf U Hyaline Cast (Auto) 0-2 (0-2) /lpf U Epithel Cells (Auto) 0-2 (0-2) /hpf Urine Bacteria (Auto) None Seen (None Seen) Administered Medications Rosuvastatin Calcium (Rosuvastatin Calcium 10 Mg Tab) 10 mg PO QPM DOMINICK Stop: 03/25/24 20:59 Last Admin: 02/24/24 20:42 Dose: Not Given Documented By: JASMIN Discontinued Medications Aspirin (Aspirin 81 Mg Ectab) 81 mg PO NOW STA Stop: 02/24/24 18:26 Last Admin: 02/24/24 18:40 Dose: 81 mg Documented By: DAMIAN Atorvastatin Calcium (Atorvastatin 40 Mg Tab) 40 mg PO QPM DOMINICK Stop: 03/25/24 19:24 Last Admin: 02/24/24 20:27 Dose: Not Given Documented By: JASMIN Clopidogrel Bisulfate (Clopidogrel Bisulfate 300 Mg Tab) 300 mg PO NOW STA Stop: 02/24/24 18:26 Last Admin: 02/24/24 18:40 Dose: 300 mg Documented By: DAMIAN Sodium Chloride (Nss) 1,000 mls @ 999 mls/hr IV .Q1H1M ONE Stop: 02/24/24 17:54 Last Infusion: 02/24/24 18:47 Dose: Infused Documented By: Admin: 02/24/24 17:12 Dose: 999 mls/hr Documented By: DAMIAN Magnesium Sulfate/Dextrose (Magnesium Sulfate / D5w) 1 gm in 100 mls @ 100 mls/hr IV NOW STA Stop: 02/24/24 17:56 Last Infusion: 02/24/24 18:46 Dose: Infused Documented By: Admin: 02/24/24 17:12 Dose: 100 mls/hr Documented By: DAMIAN Ioversol (Optiray 320 125ml) 119 ml IV ONCE ONE Stop: 02/24/24 17:46 Last Admin: 02/24/24 17:46 Dose: 119 ml Documented By: ISABELLA Imaging Data Radiologist's Impression: Chest X-Ray 02/24/24 15:57 Chest radiograph, one view History: Chest pain Comparison: None Findings: Single AP view of the chest performed. No focal consolidation or pleural effusion. No pneumothorax. The cardiomediastinal silhouette is within normal limits. Normal pulmonary vascularity. No evidence for lymphadenopathy. No visualized bony or soft tissue abnormality. Impression: Normal chest radiograph Electronically signed by Dom Talamantes 02-24-2024 4:[address] 02/24/24 15:57 CT head without contrast History: Confusion Comparison: None Technique: Using multidetector thin collimation helical acquisition technique, axial, coronal and sagittal CT images from the skull base to the vertex were obtained without intravenous contrast. Dose reduction techniques were achieved by using automatic exposure control and/or adjustment of mA and/or kV according to patient size and/or use of iterative reconstruction technique. Findings: No intracranial hemorrhage, mass-effect, or midline shift. The ventricles are proportionate to the cerebral sulci. 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 Chronic lacunar infarct in the periventricular left frontal lobe white matter. Moderate age-related changes. No convincing evidence for acute infarct. The basal cisterns are patent. The visualized paranasal sinuses are clear. Mastoid air cells are clear. Impression: No acute intracranial pathology. Electronically signed by Dom Talamantes 02-24-2024 4:53 PM Head CTA 02/24/24 17:21 CT angiogram of the neck CT angiogram of the brain with contrast Provided History: Neuro deficit Comparison: None Technique: HEAD and NECK CTA: During rapid bolus intravenous injection of nonionic contrast material, axial images were obtained using thin collimation multidetector helical technique from the base of the neck through the Vertex of vertex of the head. This CT angiogram data was reconstructed at thin intervals with mild overlap. 3D reconstructions were obtained. The axial source images, multiplanar reformations, 3D reconstructions in both maximum intensity projection display and volume rendered models were reviewed. Dose reduction techniques were achieved by using automatic exposure control and/or adjustment of mA and/or kV according to patient size and/or use of iterative reconstruction technique. Findings: Head CT: There is no intracranial hemorrhage, mass effect, or midline shift. Araujo/white matter differentiation in both cerebral hemispheres is preserved. Ventricles are proportionate to the cerebral sulci. Head CTA demonstrates no aneurysm or stenosis of the major intracranial arteries. Neck CTA demonstrates no stenosis of the major cervical arteries. Moderate calcification at the carotid bulbs bilaterally without associated stenosis. The origins of the great vessels from the aortic arch are patent. The normal distal right internal carotid artery measures 4 mm. The normal distal left internal carotid artery measures 4 mm. No mass is noted within the visualized portions of the cervical soft tissues or lung apices. Impression: 1. Head CTA demonstrates no aneurysm or stenosis of the major intracranial arteries, 2. Neck CTA demonstrates no stenosis of the major cervical arteries. Electronically signed by Dom Talamantes 02-24-2024 6:02 PM Neck CTA 02/24/24 17:21 CT angiogram of the neck CT angiogram of the brain with contrast Provided History: Neuro deficit Comparison: None Technique: HEAD and NECK CTA: During rapid bolus intravenous injection of nonionic contrast material, axial images were obtained using thin collimation multidetector helical technique from the base of the neck through the Vertex of vertex of the head. This CT angiogram data was reconstructed at thin intervals with mild overlap. 3D reconstructions were obtained. The axial source images, multiplanar reformations, 3D reconstructions in both maximum intensity projection display and volume rendered models were reviewed. Dose reduction techniques were achieved by using automatic exposure control and/or adjustment of mA and/or kV according to patient size and/or use of iterative reconstruction technique. Findings: Head CT: There is no intracranial hemorrhage, mass effect, or midline shift. Araujo/white matter differentiation in both cerebral hemispheres is preserved. Ventricles are proportionate to the cerebral sulci. Head CTA demonstrates no aneurysm or stenosis of the major intracranial arteries. Neck CTA demonstrates no stenosis of the major cervical arteries. Moderate calcification at the carotid bulbs bilaterally without associated stenosis. The origins of the great vessels from the aortic arch are patent. The normal distal right internal carotid artery measures 4 mm. The normal distal left internal carotid artery measures 4 mm. No mass is noted within the visualized portions of the cervical soft tissues or lung apices. Impression: 1. Head CTA demonstrates no aneurysm or stenosis of the major intracranial arteries, 2. Neck CTA demonstrates no stenosis of the major cervical arteries. Electronically signed by Dom Talamantes 02-24-2024 6:02 PM Discharge Plan Visit Data Chief Complaint: Confusion Stated Complaint: CONFUSION, CANT FINISH SENTENCE ED Provider: Mario Du Discharge Problem: Acute confusion, Word finding problem, Stroke-like symptoms Patient Disposition: Admitted As Inpatient Condition: Fair Discharge Instructions Interventions: ED Discharge Assessment Last Done: 02/24/24 19:50
[2024-02-24] MEDS: SODIUM CHLORIDE 0.9% 1,000 ML IV ONE (17:12)
[2024-02-24] MEDS: MAGNESIUM SULFATE / D5W 1 GM/100 ML BAG IV STA (17:12)
[2024-02-24 17:28] LABS: Thyroid Stimulating Hormone 3.772 uIu/ml (0.300-4.500)
[2024-02-24] MEDS: OPTIRAY 320 125ml IV ONE (17:46)
--- NOTE | 2024-02-24 18:02 | CT Scan Report ---
CT angiogram of the neck CT angiogram of the brain with contrast Provided History: Neuro deficit Comparison: None Technique: HEAD and NECK CTA: During rapid bolus intravenous injection of nonionic contrast material, axial images were obtained using thin collimation multidetector helical technique from the base of the neck through the Vertex of vertex of the head. This CT angiogram data was reconstructed at thin intervals with mild overlap. 3D reconstructions were obtained. The axial source images, multiplanar reformations, 3D reconstructions in both maximum intensity projection display and volume rendered models were reviewed. Dose reduction techniques were achieved by using automatic exposure control and/or adjustment of mA and/or kV according to patient size and/or use of iterative reconstruction technique. Findings: Head CT: There is no intracranial hemorrhage, mass effect, or midline shift. Araujo/white matter differentiation in both cerebral hemispheres is preserved. Ventricles are proportionate to the cerebral sulci. Head CTA demonstrates no aneurysm or stenosis of the major intracranial arteries. Neck CTA demonstrates no stenosis of the major cervical arteries. Moderate calcification at the carotid bulbs bilaterally without associated stenosis. The origins of the great vessels from the aortic arch are patent. The normal distal right internal carotid artery measures 4 mm. The normal distal left internal carotid artery measures 4 mm. No mass is noted within the visualized portions of the cervical soft tissues or lung apices. Impression: 1. Head CTA demonstrates no aneurysm or stenosis of the major intracranial arteries, 2. Neck CTA demonstrates no stenosis of the major cervical arteries. Electronically signed by Dom Talamantes 02-24-2024 6:02 PM
[2024-02-24] MEDS: CLOPIDOGREL BISULFATE 300 MG TAB PO STA (18:40)
[2024-02-24] MEDS: ASPIRIN 81 MG ECTAB PO STA (18:40)
[2024-02-24] MEDS ORDERED: PHARMACIST DISCHARGE MED REC CONSULT PRN (19:23)
--- NOTE | 2024-02-24 19:40 | History & Physical Report ---
Date of Service February 24, 2024 Assessment & Plan (1) Acute CVA (cerebrovascular accident): Plan: Assessment: 1. Suspected acute ischemic CVA. She has word finding difficulty/expressive aphasia with mild right upper extremity weakness taking into account her right hand dominance.. The patient is able to "parrot/repeat" anything I asked her to. For example: She was able to repeat "good evening Dr. Cardoso", excetra however has trouble expressing her own independent thoughts. We will do an MRI. Echocardiogram. Permissive hypertension. Dual antiplatelet therapy including Plavix and aspirin. Consult neurology formally. Statin therapy statin therapy has been known to cause myalgias and the patient. Will use Crestor in hopes to limit her myalgias.. Stroke protocol 2. Diabetes mellitus type 2 insulin-dependent. Will do Accu-Cheks AC and at bedtime. Will have communication orders to notify physician if less than 80 or greater than 180. A1c in the morning. 3. History of hypertension. Again will allow for permissive hypertension for an additional 24 hours awaiting MRI results and neurology input. 4. Hypothyroidism TSH to be checked in the morning continue replacement therapy. 5. GERD. Plan: As described above. Please refer to orders for further planning. Extensive mount of time spent at the bedside speaking with the patient and her daughter. All their questions were answered to their satisfaction and they were appreciative of our time. History of Present Illness Chief Complaint: Expressive aphasia Primary Care Provider: Sara George DO This is a 74-year-old female who has approximately 48-hour history of expressive aphasia/word finding difficulty. Presented to the ER today for further evaluation and treatment. In the emergency department she had a Noncon CT of the brain which was negative for acute findings. We are called entertain admission. We recommended stat CTAs of the head and neck and consultation with teleneurology/telestroke for antiplatelet recommendations prior to admission. CTAs of the head and neck were negative for acute findings or critical stenoses. ER provider did speak with telestroke on-call who is recommending dual antiplatelet therapy therefore the patient was loaded with Plavix 300 and aspirin. Will continue the aspirin and Plavix daily. We have added statin therapy. Will do permissive hypertension for another 24 hours until we get the MRI results. Do an echocardiogram in the morning and consult neurology formally. Allergies Allergy/AdvReac Type Severity Reaction Status Date / Time codeine Allergy Severe Swelling Verified 01/23/24 10:30 of Lip/Tongue/Throat meloxicam [From Mobic] Allergy Intermediate Hives Verified 01/23/24 10:30 nitrofurantoin Allergy Intermediate Gastrointestinal Verified 01/23/24 10:30 [From Macrobid] Upset Sulfa (Sulfonamide Allergy Intermediate Rash Verified 01/23/24 10:30 Antibiotics) sulfamethoxazole Allergy Intermediate Rash Verified 01/23/24 10:30 ciprofloxacin AdvReac Intermediate GI upset Verified 01/23/24 10:30 Cnryyhb-[id number]-SsQ Reductase AdvReac Intermediate myalgias Verified 01/23/24 10:30 Inhibitor Home Medications Medication Instructions Recorded Confirmed Type cholecalciferol (vitamin D3) 50 2,000 units PO DAILY #30 tabs 12/06/18 02/24/24 History mcg (2,000 unit) tablet cyanocobalamin (vitamin B-12) 500 1,000 mcg PO DAILY 02/22/19 02/24/24 History mcg tablet dicyclomine 10 mg capsule 10 mg PO BID PRN abdominal pain 02/21/23 02/24/24 Rx #180 caps metformin 500 mg tablet 500 mg PO BID #180 tabs 02/21/23 02/24/24 Rx blood sugar diagnostic (Blood #100 ea 03/16/23 01/23/24 Rx Glucose Test strips) lancets 33 gauge #100 ea 03/16/23 01/23/24 Rx omeprazole 20 mg capsule,delayed 20 mg PO DAILY PRN reflux #90 caps 05/08/23 02/24/24 Rx release docusate sodium 100 mg capsule 100 mg PO HS PRN Constipation 05/26/23 02/24/24 History (Colace) Wheeled Walker #1 ea 06/23/23 01/23/24 Rx lisinopril 10 mg tablet 10 mg PO HS #90 tabs 07/03/23 02/24/24 Rx levothyroxine 88 mcg tablet 88 mcg PO DAILY #90 tabs 11/06/23 02/24/24 Rx miscellaneous medical supply 02/24/24 02/24/24 History Past Med/Surg History Problem List (Updated 02/24/24 @ 19:35 by Lebron Cardoso, PhD, DO) Acute CVA (cerebrovascular accident) Urinary incontinence, urge (Chronic) Osteoarthritis Daytime somnolence Statin intolerance Venous insufficiency (chronic) (peripheral) Degenerative cervical disc B12 deficiency Chronic cough non-productive; stable-denies change or worsening per pt T2DM (type 2 diabetes mellitus) NIDDM Vitamin D deficiency Rosacea Irritable bowel syndrome Hypothyroidism Hypertension controlled, stable per pt Hyperlipidemia no longer on med, now resolved per pt's PCP Degenerative joint disease Allergic rhinitis Acid reflux controlled, stable per pt Medical History Trochanteric bursitis, right hip Degenerative joint disease of left hip Varicose veins of legs Diverticular disease Surgical History Status post right hip replacement (2000) History of left hip replacement (06/2023) History of colonoscopy History of tooth extraction History of knee replacement History of hysterectomy S/P sclerotherapy of varicose veins Family History Mother Coronary heart disease History of mastectomy Father Coronary heart disease Patient's father is Diabetes Hyperlipidemia Hypertension Brother Coronary heart disease Pulmonary fibrosis Aunt Breast cancer Grandmother (Paternal) Myocardial infarction Daughter Diabetes Denies family history of Ovarian cancer Prostate cancer Colorectal cancer Social History Smoking Status: Never smoker Second Hand Exposure: No; Do You Dip or Chew Tobacco: No; Hx Alcohol Use: No Hx Substance Use: No Preferred Language: Kosovan Communication Ability: Effective Visual Impairment: No Limitations Hearing Ability: Normal Hay Baler Required: No Beliefs That Will Affect Care: None marital status: Current Living Situation: Spouse current occupational status: retired Feels Safe at Home: Yes Childhood Exposure to Second-Hand Smoke: Yes Diet: low salt and regular Diet Comment: regular caffeine: Yes (chocolate) during the past year weight has: remained stable Dental Care, Regularly: Yes Physical Activity Frequency: Daily Physical Activity Frequency Comment: house chores Seatbelt Use: always Sunscreen Use: Yes Assistive Devices: Walker Review of Systems Review of Systems: A 10 point review of system was obtained and unless otherwise stated here or in history of present illness are negative and noncontributory to chief complaint. Physical Exam Physical Exam: In General: In general this is a pleasant 74-year-old female who is alert and oriented at the time of my examination. She is accompanied by her daughter at the time of my exam. The patient's only complaint is being unable to find her words that she wants to speak. She clearly indicates when asking she understands what she wants to stay but cannot communicate verbally appropriately. She does have intermittent word salad. HEENT: Normocephalic atraumatic pupils are equal round and reactive to light bilaterally. No scleral icterus no conjunctival injection external auditory canals are patent septum is in the midline nose is without discharge oral mucosa is pink and moist without lesion. NECK: Supple no rigidity no lymphadenopathy no thyromegaly no carotid bruits no JVD no masses. HEART: Regular rate and rhythm I do not appreciate any ectopy or rub. No murmur. LUNGS: Clear to auscultation bilaterally and anteriorly with no evidence of adventitious sounds/wheezes rales or rhonchi. ABDOMEN: Soft nontender, no rebound, no peritoneal signs, positive bowel sounds, no appreciable organomegaly. EXTREMITIES: Intact, no peripheral cyanosis, clubbing or edema. Strength is 5 out of 5 x 3. Her right upper extremity has slightly decreased strength compared to the left especially given her right hand dominance. NEUROLOGICAL: Other than described above, cranial nerves II through XII are grossly intact with no focal deficit elicited upon examination. Results & Data Results & Data Vital Signs (Past 12 Hours) Vital Signs Temp Pulse Pulse Resp BP BP Pulse Ox 02/24/24 19:25 63 20 94 02/24/24 18:33 56 L 17 97 02/24/24 18:21 57 L 30 H 98 02/24/24 18:00 59 L 24 96 02/24/24 18:00 112/69 02/24/24 17:51 59 L 18 91 02/24/24 17:22 71 18 137/81 98 02/24/24 17:18 66 24 02/24/24 17:14 137/80 02/24/24 17:14 137/80 02/24/24 17:14 137/80 02/24/24 17:14 67 02/24/24 16:45 95 H 96 02/24/24 16:45 94 H 18 164/74 H 96 02/24/24 15:52 36.5 C 66 18 158/86 H 97 O2 Del Method 02/24/24 19:25 Room Air 02/24/24 18:33 02/24/24 18:21 02/24/24 18:00 02/24/24 18:00 02/24/24 17:51 02/24/24 17:22 02/24/24 17:18 02/24/24 17:14 02/24/24 17:14 02/24/24 17:14 02/24/24 17:14 02/24/24 16:45 Room Air 02/24/24 16:45 02/24/24 15:52 Room Air Code Status & VTE Plan Code Status DNR/DNI. I personally discussed with patient at the bedside. She does have a living will. Conversation took place with the patient's daughter present. PG Care Time/CCT Total # of Minutes Spent Total Time Spent with Patient: Total time spent is greater than 50% in coordination of care (as documented) at patient's floor/unit and/or counseling patient: Coding Level of Care Code 72793 INT INP/OBS CARE 3/75MIN Diagnoses Acute CVA (cerebrovascular accident) I63.9
[2024-02-24] MEDS ORDERED: PANTOprazole 40 MG TAB PO PRN (19:52)
[2024-02-24] MEDS: ATORVASTATIN 40 MG TAB PO SCH (20:27)
[2024-02-24] MEDS: ROSUVASTATIN CALCIUM 10 MG TAB PO SCH (20:42)
[2024-02-25] MEDS: LORazepam 1 MG/1 ML SYR ED Inj Use IV STA (02:58)
--- NOTE | 2024-02-25 03:00 | Emergency Department Note ---
ED Visit Note ED Physician Code Response Note: CODE Purple: Date: 02/25/24. Time: 2:50a Called to room B11 for code purple Code being run by Nursing Code Status: DNR/DNI per Resident Brief summary: 74-year-old female brought in earlier in the day for strokelike symptoms and slurred speech/word finding issues. Patient was awaiting MRI this morning. Reportedly nursing went to the room noted patient to be somewhat confused and then she started having tonic-clonic seizure. Lasted 30 to 45 seconds before tonic-clonic resolved however patient remained unresponsive and quite clenched. Biting her tongue and still having some mild twitching on my evaluation. She is quite hypertensive 180s over 130s though difficult to get a good blood pressure. O2 sats initially in the 70s though came up with 100% O2 and attempted bagging. Patient was given Ativan 2 mg IV along with 40/kg IV Keppra. Seizure activity did seem to improve, though following this patient is a bit somnolent but making some purposeful movement. Daughter at bedside and confirm patient wishes to be DNR during discussion however does note that if reversible intubation may be reasonable. Critical care is at bedside discussing plan with daughter. Critical Care: I have personally spent 30 minutes of critical care time in the direct management of this patient. Acute seizure activity requiring stabilization and coordination with primary team. This was a life/limb threatening event. This 30 minutes is in excess of all separately billable procedures. Darren Mckenzie MD
[2024-02-25] MEDS: levETIRAcetam 500 MG/5 ML VIAL IV STA (03:05)
[2024-02-25] MEDS: LORazepam 1 MG/1 ML SYR ED Inj Use ONE (03:07)
--- NOTE | 2024-02-25 03:54 | Critical Care Consultation ---
Date of Consultation February 25, 2024 Assessment & Plan (1) Stroke: (2) Aphasia: (3) T2DM (type 2 diabetes mellitus): (4) Hypothyroidism: (5) Hypertension: (6) Hyperlipidemia: (7) Seizure-like activity: Plan Reason Critically Ill: 74 YOF admitted with stroke like symptoms with noted as "chronic CVA" outside time frame for thrombolytics, suffered seizure like activity with with worsening change of neurological exam and concern for return to baseline. Neuro - CVA, Seizure like activity, [facility] ICU: [facility] - Patient with CVA symptoms interpreted as chronic/subacute - with symptom onset ~48 hours ago. Presented to EMD with noted expressive aphasia- Initial NIHSS documented as 0 - Patient now with NIHSS 15 post seizure like activity, with regression of symptoms over the last hour to 13, and now currently scoring 10- with improvement noted in aphasia and movement of upper ext. - CT head repeated- No hemorrhage noted on my initial review. Radiology interpretation as Right frontal large patchy cortical, subcortical, and deep white matter, hypodensity, suggesting acute/Subacute infarction, other possibilities should be further excluded by MRI assessment if clinically warranted. - Case discussed with [place]y at [facility] and [place] neurology at [facility]- Appreciate their assistance. - EEG on 02/25/23, MRI with MRA this morning (02/24/23), Keppra 750mg BID, ASA/Plavix - BP allow for permissive HTN - Continue Plavix and ASA - ECHO with bubble in am - Telemetry x24 hours follow for arrhythmia- recommend LOOP or ZIO extended monitoring if no arrhythmia identified while in house- cards consulted for eval - STOP BANG- 2 LOW risk for GERMAINE - HGB A1c and lipid panel this morning- adjust medications as applicable- crestor already increased to 20mg daily - Seizure like activity- improved, likely with some post ictal effects on neurological exam as well- Continue Keppra 750GM BID - Neurology consultation appreciated Cardiac -HTN, HLD - as above, allow permissive HTN - Crestor increased to 20mg Respiratory - NO acute needs - currently protecting airway and has improved as symptoms resolve- weaning down oxygen - If seizes again, would consider intubation GI - NPO at this time, continue PPI RENAL/LYTES - No acute needs at this time - Crooks placed to gravity, likely able to remove later today ENDO - DMII - ICU hyperglycemic protocol goal <180mg/DL HEME - NO acute needs ID - No concern for infective etiology at this time Supervising Physician Co-Signing Physician Notes I saw and evaluated the patient with KATI Hines, and agree with findings and plan as documented in the note. Patient seen and examined at bedside. No acute distress After admission patient did have a seizure for which she was given Ativan around 3:30 AM. Patient was somnolent but easily arousable. She was able to identify her daughters. Denies any headache, no chest pain, no abdominal pain. No nausea or vomiting. She was saturating 93% on room air, systolic blood pressure was in the 140s. Heart rate in the 60s Constitutional: No acute distress HEENT: EOMI, PERRLA, bite jose manuel in the left anterior lateral aspect of the tongue Respiratory system: Decreased air entry bilaterally, no wheeze, no rhonchi, positive crackles bilateral lower lobes CVS: S1-S2 positive, no murmurs or gallops Abdomen: Soft, nontender, nondistended, positive bowel sounds x4 Extremities: +2 pulses bilaterally radialis/ dorsalis pedis, no cyanosis, no edema Neuro: Somnolent but easily arousable, oriented to self and place. Right upper and right lower extremity strength 4/5, cranial nerves II to XII grossly intact Psych: Normal mood and affect G/U: Positive Crooks --Prophylaxis VTE: IPC GI: None Lines: Peripheral Diet: N.p.o. Plan: In/out: +896, urine output [address] as well as neck CTA did not show any significant stenosis aneurysm or acute infarct Given the episode of seizure, continue with Kejoey Patient is supposed to have MRI of the brain as well as MRA done. Once we have the results back we will get in touch with the neurology here as well at [facility] to decide the next plan of care. I did discuss the CODE STATUS with the family in front of the . She is full code but if there is a time when there does not seem to be good prognosis she would not like to be on the ventilator for long time. Patient does not seem to have capacity right now when I saw her to make any decision. Will change the CODE STATUS to full code Continue with neurochecks N.p.o. with aspiration precautions I have personally spent 68 minutes of critical care time in the direct management of this patient. This is a life/limb threatening event. This includes time spent evaluating patient, direct bedside care, chart review, placing orders, interpretation of diagnostic studies, discussion with consultants, patient, and family members, as well as other required patient management activities. This time is exclusive of all separately billable procedures, and teaching time and separate from and in addition to any other critical care service time. Please note the above document was generated using voice recognition software. It may contain grammatical, syntax or spelling errors. History of Present Illness Reason for Consultation: Seizure Requesting Physician: Jeremy Puga MD Attending Physician: Lebron Cardoso, PhD, DO History of Present Illness 74 YOF with medical history of: DMII, HTN, Hypothyroidism, GERD. Patient was admitted evening of 02/24/24 at 1930 for CVA with last known well on Monday. She was brought to the EMD as she was having word finding difficulties- as her daughter puts it, her mom told her " I know what I want to say but having hard time getting it out". In the ER she was stroke alerted, had CT of the head, CTA of the head and neck. CT of the head at that time was interpreted as "Chronic moderate-sized infarct involving the right frontal lobe. Chronic lacunar infarct in the periventricular left frontal lobe white matter. Moderate age-related changes. No convincing evidence for acute infarct. The basal cisterns are patent", and CTA was interpreted as no evidence of aneurysm of major vessels, moderate calcification at the carotid bulbs but no stenosis of the cervical vessels and bilateral ICA's as normal. No other ICAD reported. Patient was given ASA and Plavix and scheduled for admission. Per the daughter she reports that there were no other changes noted, and that she remembers her asking what time it was around 0030 and they both fell asleep. Around 0230 the nurse went in to get her vitals, she reports that her mom woke up, looked at her and then turned her head to the right, clenched her jaw, and had shaking of her arms bilaterally. A Rapid Response "CODE PURPLE" was called, by the time we got to the patient's room in the ER, she was had already had a NPA in place on NRB, and being transported to resuscitation bay. She did not have any more rigidity noted in her arms, but remained with jaw clenching. She was given 2mg IV Ativan as well as Keppra Load of 2.8mg IV. She had resolution of the Jaw clenching, and again no other tonic clonic movement, no loss of bowel or bladder, pupils were equal and reactive and she was maintaining adequate respiratory rate and efforts on NRB. She was taken to CT scan. She will be transferred to ICU, we will continue to monitor her neurologically, hemodynamically, as well as respiratory. We will reach back to [facility] neurolog[place] in light of possible seizure activity, with concerns of not return back to baseline in setting of likely CVA. On arrival to the ICU the patient opens eyes to name, follows commands, is currently with expressive aphasia and no verbal response. Initially patient was DNR/DNI in event of cardiac arrest- I did clarify with the daughter at the bedside who also talked with her dad and in event of respiratory arrest or respiratory difficulty in this setting would want intubation and mechanical ventilation to stabilize her state. We also did discuss possible transfer for possible status vs. subclinical seizure vs. worsening acute on chronic CVA and she was also "OK" with the above. CODE: Limited - DNR in event of cardiac arrest Allergies Allergy/AdvReac Type Severity Reaction Status Date / Time codeine Allergy Severe Swelling Verified 01/23/24 10:30 of Lip/Tongue/Throat meloxicam [From Mobic] Allergy Intermediate Hives Verified 01/23/24 10:30 nitrofurantoin Allergy Intermediate Gastrointestinal Verified 01/23/24 10:30 [From Macrobid] Upset Sulfa (Sulfonamide Allergy Intermediate Rash Verified 01/23/24 10:30 Antibiotics) sulfamethoxazole Allergy Intermediate Rash Verified 01/23/24 10:30 ciprofloxacin AdvReac Intermediate GI upset Verified 01/23/24 10:30 [id number] Reductase AdvReac Intermediate myalgias Verified 01/23/24 10:30 Inhibitor Home Medications Medication Instructions Recorded Confirmed Type cholecalciferol (vitamin D3) 50 2,000 units PO DAILY #30 tabs 12/06/18 02/24/24 History mcg (2,000 unit) tablet cyanocobalamin (vitamin B-12) 500 1,000 mcg PO DAILY 02/22/19 02/24/24 History mcg tablet dicyclomine 10 mg capsule 10 mg PO BID PRN abdominal pain 02/21/23 02/24/24 Rx #180 caps metformin 500 mg tablet 500 mg PO BID #180 tabs 02/21/23 02/24/24 Rx blood sugar diagnostic (Blood #100 ea 03/16/23 01/23/24 Rx Glucose Test strips) lancets 33 gauge #100 ea 03/16/23 01/23/24 Rx omeprazole 20 mg capsule,delayed 20 mg PO DAILY PRN reflux #90 caps 05/08/23 02/24/24 Rx release docusate sodium 100 mg capsule 100 mg PO HS PRN Constipation 05/26/23 02/24/24 History (Colace) Wheeled Walker #1 ea 06/23/23 01/23/24 Rx lisinopril 10 mg tablet 10 mg PO HS #90 tabs 07/03/23 02/24/24 Rx levothyroxine 88 mcg tablet 88 mcg PO DAILY #90 tabs 11/06/23 02/24/24 Rx miscellaneous medical supply 02/24/24 02/24/24 History Patient History Medical History Trochanteric bursitis, right hip Degenerative joint disease of left hip Varicose veins of legs Diverticular disease denies h/o diverticulitis Surgical History Status post right hip replacement (2000) History of left hip replacement (06/2023) June 2023 History of colonoscopy History of tooth extraction History of knee replacement left-2007; right-2016 History of hysterectomy 1989, one ovary remains S/P sclerotherapy of varicose veins left leg 1987 Family History Mother Coronary heart disease History of mastectomy Father Coronary heart disease Patient's father is AGE 72 DUE TO HEART DISEASE Diabetes Hyperlipidemia Hypertension Brother Coronary heart disease Pulmonary fibrosis Aunt Breast cancer Grandmother (Paternal) Myocardial infarction OF [place] @ AGE 50 Daughter Diabetes Denies family history of Ovarian cancer Prostate cancer Colorectal cancer Social History Smoking Status: Never smoker Second Hand Exposure: No; Do You Dip or Chew Tobacco: No; Hx Alcohol Use: No Hx Substance Use: No Preferred Language: Albanian Communication Ability: Effective Visual Impairment: No Limitations Hearing Ability: Normal Integrity Consultant Required: No Beliefs That Will Affect Care: None marital status: Current Living Situation: Spouse current occupational status: retired Feels Safe at Home: Yes Childhood Exposure to Second-Hand Smoke: Yes Diet: low salt and regular Diet Comment: regular caffeine: Yes (chocolate) during the past year weight has: remained stable Dental Care, Regularly: Yes Physical Activity Frequency: Daily Physical Activity Frequency Comment: house chores Seatbelt Use: always Sunscreen Use: Yes Assistive Devices: Walker Review of Systems Review of Systems: REVIEW OF SYSTEMS: limited as patiet is aphasic- otherwise as noted in HPI Physical Exam Physical Exam: PHYSICAL EXAM: Head: Normocephalic, atraumatic Neuro: Initially unresponsive, with localization to pain, no speech, PERRL, EOMI,- this improved to awaken spontaneously and to name, following commands, localization of pain, sensation intact as not limited by aphasia all ext remities, right sided weakness. NIHSS 15 Chest: equal rise and fall of the chest, no accessory muscle use, no heaves or thrills, Clear to auscultation, NRB Cardiac: Regular rate and rhythm, telemetry reviewed- NSR, skin warm dry, cap refill <3 seconds, peripheral pulses +2 no JVD, Grade I systolic murmur LSB GI: NABS x 4 quadrants, soft, nontender to palpation, no rebound, guarding or tenderness : Crooks placed to gravity Psych: Normal mood and affect Skin: no rash or erythema Results & Data Results & Data Vital Signs (Past 12 Hours) Vital Signs Temp Pulse Pulse Resp BP BP Pulse Ox 02/25/24 03:15 130/75 02/25/24 03:00 115/63 02/25/24 02:57 134/72 02/25/24 02:55 153/75 H 02/25/24 02:48 60 21 02/25/24 02:42 61 18 02/25/24 02:33 61 16 02/25/24 02:21 67 14 02/25/24 02:18 79 14 02/25/24 01:45 58 L 20 02/25/24 01:30 57 L 21 162/85 H 96 02/25/24 01:12 60 22 02/25/24 01:06 65 19 02/25/24 00:54 60 22 02/25/24 00:30 60 14 02/25/24 00:00 60 18 158/68 H 97 02/24/24 23:51 60 19 94 02/24/24 23:42 58 L 19 92 02/24/24 23:39 61 19 95 02/24/24 23:18 64 22 97 02/24/24 22:56 60 02/24/24 21:38 65 18 168/78 H 97 02/24/24 20:42 68 18 151/77 H 95 02/24/24 20:17 02/24/24 19:25 63 20 94 02/24/24 18:33 56 L 17 97 02/24/24 18:21 57 L 30 H 98 02/24/24 18:00 59 L 24 96 02/24/24 18:00 112/69 02/24/24 17:51 59 L 18 91 02/24/24 17:22 71 18 137/81 98 02/24/24 17:18 66 24 02/24/24 17:14 137/80 02/24/24 17:14 137/80 02/24/24 17:14 137/80 02/24/24 17:14 67 02/24/24 16:45 95 H 96 02/24/24 16:45 94 H 18 164/74 H 96 02/24/24 15:52 36.5 C 66 18 158/86 H 97 Pulse Ox O2 Del Method O2 Del Method 02/25/24 03:15 02/25/24 03:00 02/25/24 02:57 02/25/24 02:55 02/25/24 02:48 02/25/24 02:42 02/25/24 02:33 02/25/24 02:21 02/25/24 02:18 02/25/24 01:45 02/25/24 01:30 Room Air 02/25/24 01:12 02/25/24 01:06 02/25/24 00:54 02/25/24 00:30 02/25/24 00:00 Room Air 02/24/24 23:51 Room Air 02/24/24 23:42 Room Air 02/24/24 23:39 Room Air 02/24/24 23:18 Room Air 02/24/24 22:56 02/24/24 21:38 Room Air 02/24/24 20:42 Room Air 02/24/24 20:17 96 Room Air 02/24/24 19:25 Room Air 02/24/24 18:33 02/24/24 18:21 02/24/24 18:00 02/24/24 18:00 02/24/24 17:51 02/24/24 17:22 02/24/24 17:18 02/24/24 17:14 02/24/24 17:14 02/24/24 17:14 02/24/24 17:14 02/24/24 16:45 Room Air 02/24/24 16:45 02/24/24 15:52 Room Air Laboratory Results Abnormal lab results 02/24/24 02/24/24 02/24/24 Range/Units 16:06 16:12 21:40 RDW Std Deviation 48.0 H (36.4-46.3) fL Glucose 105 H (70-99(Fasting)) mg/dl POC Glucose 155 H (70-99) mg/dl Magnesium 1.6 L (1.7-2.4) mg/dl Ur Leukocyte Esterase Trace H (Negative) Diagnostic Findings Chest X-Ray 02/24/24 15:57 Chest radiograph, one view History: Chest pain Comparison: None Findings: Single AP view of the chest performed. No focal consolidation or pleural effusion. No pneumothorax. The cardiomediastinal silhouette is within normal limits. Normal pulmonary vascularity. No evidence for lymphadenopathy. No visualized bony or soft tissue abnormality. Impression: Normal chest radiograph Electronically signed by Dom Talamantes 02-24-2024 4:[address] 02/24/24 15:57 CT head without contrast History: Confusion Comparison: None Technique: Using multidetector thin collimation helical acquisition technique, axial, coronal and sagittal CT images from the skull base to the vertex were obtained without intravenous contrast. Dose reduction techniques were achieved by using automatic exposure control and/or adjustment of mA and/or kV according to patient size and/or use of iterative reconstruction technique. Findings: No intracranial hemorrhage, mass-effect, or midline shift. The ventricles are proportionate to the cerebral sulci. 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 Chronic lacunar infarct in the periventricular left frontal lobe white matter. Moderate age-related changes. No convincing evidence for acute infarct. The basal cisterns are patent. The visualized paranasal sinuses are clear. Mastoid air cells are clear. Impression: No acute intracranial pathology. Electronically signed by Dom Talamantes 02-24-2024 4:53 PM Head CTA 02/24/24 17:21 CT angiogram of the neck CT angiogram of the brain with contrast Provided History: Neuro deficit Comparison: None Technique: HEAD and NECK CTA: During rapid bolus intravenous injection of nonionic contrast material, axial images were obtained using thin collimation multidetector helical technique from the base of the neck through the Vertex of vertex of the head. This CT angiogram data was reconstructed at thin intervals with mild overlap. 3D reconstructions were obtained. The axial source images, multiplanar reformations, 3D reconstructions in both maximum intensity projection display and volume rendered models were reviewed. Dose reduction techniques were achieved by using automatic exposure control and/or adjustment of mA and/or kV according to patient size and/or use of iterative reconstruction technique. Findings: Head CT: There is no intracranial hemorrhage, mass effect, or midline shift. Araujo/white matter differentiation in both cerebral hemispheres is preserved. Ventricles are proportionate to the cerebral sulci. Head CTA demonstrates no aneurysm or stenosis of the major intracranial arteries. Neck CTA demonstrates no stenosis of the major cervical arteries. Moderate calcification at the carotid bulbs bilaterally without associated stenosis. The origins of the great vessels from the aortic arch are patent. The normal distal right internal carotid artery measures 4 mm. The normal distal left internal carotid artery measures 4 mm. No mass is noted within the visualized portions of the cervical soft tissues or lung apices. Impression: 1. Head CTA demonstrates no aneurysm or stenosis of the major intracranial arteries, 2. Neck CTA demonstrates no stenosis of the major cervical arteries. Electronically signed by Dom Talamantes 02-24-2024 6:02 PM Neck CTA 02/24/24 17:21 CT angiogram of the neck CT angiogram of the brain with contrast Provided History: Neuro deficit Comparison: None Technique: HEAD and NECK CTA: During rapid bolus intravenous injection of nonionic contrast material, axial images were obtained using thin collimation multidetector helical technique from the base of the neck through the Vertex of vertex of the head. This CT angiogram data was reconstructed at thin intervals with mild overlap. 3D reconstructions were obtained. The axial source images, multiplanar reformations, 3D reconstructions in both maximum intensity projection display and volume rendered models were reviewed. Dose reduction techniques were achieved by using automatic exposure control and/or adjustment of mA and/or kV according to patient size and/or use of iterative reconstruction technique. Findings: Head CT: There is no intracranial hemorrhage, mass effect, or midline shift. Araujo/white matter differentiation in both cerebral hemispheres is preserved. Ventricles are proportionate to the cerebral sulci. Head CTA demonstrates no aneurysm or stenosis of the major intracranial arteries. Neck CTA demonstrates no stenosis of the major cervical arteries. Moderate calcification at the carotid bulbs bilaterally without associated stenosis. The origins of the great vessels from the aortic arch are patent. The normal distal right internal carotid artery measures 4 mm. The normal distal left internal carotid artery measures 4 mm. No mass is noted within the visualized portions of the cervical soft tissues or lung apices. Impression: 1. Head CTA demonstrates no aneurysm or stenosis of the major intracranial arteries, 2. Neck CTA demonstrates no stenosis of the major cervical arteries. Electronically signed by Dom Talamantes 02-24-2024 6:[address] 02/25/24 03:01 EXAM: CT head/brain wo con CLINICAL HISTORY: Seizure, confusion. TECHNIQUE: [id number] axial non-contrast CT scan of the brain was performed from the skull base to the high parietal region. One of the following dose reduction techniques was utilized for this exam: Automated exposure control, adjustment of the mA and/or kV according to patient size, /[id number] use of iterative reconstruction. CTDI: 39.1 mGy , DLP: 547.75 mGy-cm./OBX.5.1.2/OBX.5.1 COMPARISON: None. FINDINGS: Brain Parenchyma: Right frontal large patchy cortical, subcortical, and deep white matter hypodensity, effacing the cortical sulci noted. Mild age-related cerebral involutional changes are noted. A small bilateral deep frontal periventricular hypodense foci with no mass effect related to small vessel disease. Ventricular System: Ventricles are mildly enlarged in size. No evidence of hydrocephalus or ventricular enlargement. Subarachnoid Spaces: Normal sulci and cisterns. No evidence of subarachnoid hemorrhage or extra-axial fluid collections. Cerebellum and Brainstem: Normal size and signal. No masses, lesions, or areas of abnormal density. Small right lentiform calcified focus noted. Atherosclerotic changes of the vertebral and both ICA cavernous portions were noted. Orbits: Normal appearance of the globes, optic nerves, and extraocular muscles. No evidence of orbital masses or abnormal density. Sinuses: Clear paranasal sinuses. No evidence of sinusitis or mucosal thickening. Mastoid Air Cells: Clear mastoid air cells. No evidence of mastoiditis. Skull: Normal skull morphology. IMPRESSION: 1. Right frontal large patchy cortical, subcortical, and deep white matter hypodensity, suggesting acute/Subacute infarction, other possibilities should be further excluded by MRI assessment if clinically warranted. 2. Mild age-related cerebral involutional changes are noted. 3. A small bilateral deep frontal periventricular hypodense foci with no mass effect related to small vessel disease. [facility]'s ER was called at [phone] at 3:38 AM [employer], 02/25/2024, and Nurse Emil Da Silva was informed regarding the presence of Significant Medical Findings on this report. Electronically signed by Rusty Rm 02-25-2024 04:41 AM Medications Administered Home Medications cholecalciferol (vitamin D3) 50 mcg (2,000 unit) tablet 2,000 units PO DAILY #30 tabs 12/06/18 [History Confirmed 02/24/24] cyanocobalamin (vitamin B-12) 500 mcg tablet 1,000 mcg PO DAILY 02/22/19 [History Confirmed 02/24/24] dicyclomine 10 mg capsule 10 mg PO BID PRN abdominal pain #180 caps 02/21/23 [Rx Confirmed 02/24/24] metformin 500 mg tablet 500 mg PO BID #180 tabs 02/21/23 [Rx Confirmed 02/24/24] blood sugar diagnostic (Blood Glucose Test strips) #100 ea 03/16/23 [Rx Confirmed 01/23/24] lancets 33 gauge #100 ea 03/16/23 [Rx Confirmed 01/23/24] omeprazole 20 mg capsule,delayed release 20 mg PO DAILY PRN reflux #90 caps 05/08/23 [Rx Confirmed 02/24/24] docusate sodium 100 mg capsule (Colace) 100 mg PO HS PRN Constipation 05/26/23 [History Confirmed 02/24/24] Wheeled Walker #1 ea 06/23/23 [Rx Confirmed 01/23/24] lisinopril 10 mg tablet 10 mg PO HS #90 tabs 07/03/23 [Rx Confirmed 02/24/24] levothyroxine 88 mcg tablet 88 mcg PO DAILY #90 tabs 11/06/23 [Rx Confirmed 02/24/24] miscellaneous medical supply 02/24/24 [History Confirmed 02/24/24] Active Medications Acetaminophen (Acetaminophen 325 Mg Tab) 650 mg PO Q4H PRN PRN Reason: Pain or Fever Stop: 03/25/24 19:22 Aspirin (Aspirin 81 Mg Ectab) 81 mg PO DAILY DOMINICK Stop: 03/26/24 08:59 Clopidogrel Bisulfate (Clopidogrel Bisulfate 75 Mg Tab) 75 mg PO QAM DOMINICK Stop: 03/26/24 08:59 Magnesium Sulfate/Dextrose (Magnesium Sulfate / D5w) 1 gm in 100 mls @ 50 mls/hr IV Q2H DOMINICK Stop: 02/25/24 08:03 Levetiracetam (Levetiracetam 500 Mg Tab) 1,000 mg PO BID DOMINICK Stop: 03/26/24 08:59 Levothyroxine Sodium (Levothyroxine Sodium 88 Mcg Tablet) 88 mcg PO DAILYBB DOMINICK Stop: 03/26/24 06:29 Miscellaneous (Icu Protocol For Hyperglycemia) 1 each N/A Q6 DOMINICK Stop: 02/27/24 05:59 Miscellaneous Information (Pharmacist Discharge Med Rec Consult) 1 each N/A UD PRN PRN Reason: Consult Stop: 03/25/24 19:22 Pantoprazole Sodium (Pantoprazole 40 Mg Tab) 40 mg PO DAILY PRN PRN Reason: reflux Stop: 03/25/24 19:51 Rosuvastatin Calcium (Rosuvastatin Calcium 10 Mg Tab) 10 mg PO QPM DOMINICK Stop: 03/25/24 20:59 Last Admin: 02/24/24 20:42 Dose: Not Given Coding Level of Care Code 28543 CRITICAL CARE 1ST 30-74M Diagnoses Stroke I63.9 Aphasia R47.01 T2DM (type 2 diabetes mellitus) E11.9 Hypothyroidism E03.9 Hypertension I10 Hyperlipidemia E78.5 Seizure-like activity R56.9
--- NOTE | 2024-02-25 04:41 | CT Scan Report ---
EXAM: CT head/brain wo con CLINICAL HISTORY: Seizure, confusion. TECHNIQUE: [id number].[id number].5.1.1An axial non-contrast CT scan of the brain was performed from the skull base to the high parietal region. One of the following dose reduction techniques was utilized for this exam: Automated exposure control, adjustment of the mA and/or kV according to patient size, /OBX.5.1.1OBX.5.1.2 use of iterative reconstruction. CTDI: 39.1 mGy , DLP: 547.75 mGy-cm./OBX.5.1.2/OBX.5.1 COMPARISON: None. FINDINGS: Brain Parenchyma: Right frontal large patchy cortical, subcortical, and deep white matter hypodensity, effacing the cortical sulci noted. Mild age-related cerebral involutional changes are noted. A small bilateral deep frontal periventricular hypodense foci with no mass effect related to small vessel disease. Ventricular System: Ventricles are mildly enlarged in size. No evidence of hydrocephalus or ventricular enlargement. Subarachnoid Spaces: Normal sulci and cisterns. No evidence of subarachnoid hemorrhage or extra-axial fluid collections. Cerebellum and Brainstem: Normal size and signal. No masses, lesions, or areas of abnormal density. Small right lentiform calcified focus noted. Atherosclerotic changes of the vertebral and both ICA cavernous portions were noted. Orbits: Normal appearance of the globes, optic nerves, and extraocular muscles. No evidence of orbital masses or abnormal density. Sinuses: Clear paranasal sinuses. No evidence of sinusitis or mucosal thickening. Mastoid Air Cells: Clear mastoid air cells. No evidence of mastoiditis. Skull: Normal skull morphology. IMPRESSION: 1. Right frontal large patchy cortical, subcortical, and deep white matter hypodensity, suggesting acute/Subacute infarction, other possibilities should be further excluded by MRI assessment if clinically warranted. 2. Mild age-related cerebral involutional changes are noted. 3. A small bilateral deep frontal periventricular hypodense foci with no mass effect related to small vessel disease. [facility]'s ER was called at [phone] at 3:38 AM DROP CLIPPER, 02/25/2024, and Nurse Emil Da Silva was informed regarding the presence of Significant Medical Findings on this report. Electronically signed by Rusty Rm 02-25-2024 04:41 AM
[2024-02-25] MEDS: MAGNESIUM SULFATE / D5W 1 GM/100 ML BAG IV SCH (06:12)
[2024-02-25 06:51] LABS: Basophils # (auto) 0.04 K/uL (0.00-0.20); Basophils % (auto) 0.5 %; Eosinophils # (auto) 0.06 K/uL (0.00-0.50); Eosinophils % (auto) 0.7 %; Hematocrit (blood only) 40.8 % (37.0-47.0); Hemoglobin 13.5 g/dl (12.0-16.0); Immature Granulocytes # (auto) 0.06 K/uL (0.01-0.20); Immature Granulocytes % (auto) 0.7 %; Lymphocytes # (auto) 1.81 K/uL (1.20-3.40); Lymphocytes % (auto) 22.2 %; Mean Corpuscular Hemoglobin 30.7 pg (25.0-34.0); Mean Corpuscular Hgb Conc 33.1 g/dL (32.0-36.0); Mean Corpuscular Volume 92.7 fL (80.0-100.0); Mean Platelet Volume 11.4 fL (9.4-12.4); Monocytes # (auto) 0.71 K/uL (0.11-0.59); Monocytes % (auto) 8.7 %; Neutrophils # (auto) 5.46 K/uL (1.40-6.50); Neutrophils % (auto) 67.2 %; Platelet Count 152 K/uL (130-400); RDW Coefficient of Variation 14.3 % (11.5-14.5); RDW Standard Deviation 48.6 fL (36.4-46.3); White Blood Count 8.14 K/ul (4.8-10.8)
[2024-02-25 07:13] LABS: Albumin Globulin Ratio 1.3 (0.9-2); Albumin Level 3.6 gm/dl (3.4-5.0); BUN Creatinine Ratio 15.4 (10-20); Bilirubin,Total 0.6 mg/dl (0.2-1.0); Calcium 8.7 mg/dl (8.6-10.3); Chol HDL Ratio 5.6 (0-5); Creatinine Clr Calc Pharmacy 76.3 ml/min; Globulin 2.8 gm/dl (2.5-4.0); Magnesium 1.7 mg/dl (1.7-2.4); Potassium 3.9 mmol/L (3.5-5.1); Total Protein 6.4 gm/dl (6.0-8.3)
--- NOTE | 2024-02-25 07:22 | Hospitalist Progress Note ---
Date of Service February 25, 2024 Assessment & Plan (1) Acute CVA (cerebrovascular accident): Plan 74 yo F with PMHx of DM II, HTN, Hypothyroidism, GERD brought to the ER for the evaluation of expressive aphasia x48 hrs. #Suspected acute ischemic CVA #Expressive aphasia #Seizure like activity - expressive aphasia with mild right upper extremity weakness, she is able to repeat words, but not able to express her own independent thoughts - NCCT head, CTA head / neck unremarkable for any acute pathology - teleneuro recs DAPT, on asp / plavix at this time - neurology recs apprecaited - MRI brain shows new stroke in the left holden radiata area and old stroke in the left frontal lobe - cont statin - cont Keppra - diet resumed by [employer] REPORTER - cont aspiration precautions - cont neuro checks - PT / OT - initially admitted to ICU, currently stable to transferred to PCU / Tele #DM II - hold metformin - A1c 6.9 - monitor BG #HTN - permissive HTN #Hypothyroidism - cont levothyroxine 02/24: pt's and 2 daughters at bedside Admission and Anticipated Discharge Date Admission Date: February 24, 2024 Subjective Admitted overnight She has significantly improved clinically and is conversing better Review of Systems Review of Systems: Comprehensive ROS neg Physical Exam Physical Exam: Gen: NAD, lying in bed comfortable HEENT: NC/AT, MMM Lungs: CTAB CVS: s1s2nl, RRR Abd: Soft, NT, nl bowel sounds Pt moving all extremities, following commands, mild right side weakness noted Results & Data Results & Data Vital Signs (Past 12 Hours) Vital Signs Temp Pulse Pulse Resp BP BP Pulse Ox 02/25/24 06:33 36.7 C 79 20 99 02/25/24 05:00 36.6 C 80 24 145/89 H 98 02/25/24 04:20 36.7 C 87 16 148/87 H 99 02/25/24 04:20 02/25/24 04:20 88 02/25/24 04:17 90 20 148/89 H 98 02/25/24 04:00 90 19 158/90 H 98 02/25/24 03:30 88 19 118/74 98 02/25/24 03:15 130/75 02/25/24 03:00 115/63 02/25/24 02:57 134/72 02/25/24 02:55 153/75 H 02/25/24 02:48 60 21 02/25/24 02:42 61 18 02/25/24 02:33 61 16 02/25/24 02:21 67 14 02/25/24 02:18 79 14 02/25/24 01:45 58 L 20 02/25/24 01:30 57 L 21 162/85 H 96 02/25/24 01:12 60 22 02/25/24 01:06 65 19 02/25/24 00:54 60 22 02/25/24 00:30 60 14 02/25/24 00:00 60 18 158/68 H 97 02/24/24 23:51 60 19 94 02/24/24 23:42 58 L 19 92 02/24/24 23:39 61 19 95 02/24/24 23:18 64 22 97 02/24/24 22:56 60 02/24/24 21:38 65 18 168/78 H 97 02/24/24 20:42 68 18 151/77 H 95 02/24/24 20:17 02/24/24 19:25 63 20 94 Pulse Ox O2 Del Method O2 Del Method O2 Flow Rate O2 Flow Rate 02/25/24 06:33 02/25/24 05:00 Oxymask 3 02/25/24 04:20 Oxymask 3 02/25/24 04:20 99 Oxymask 3 02/25/24 04:20 02/25/24 04:17 Oxymask 3 02/25/24 04:00 Oxymask 3 02/25/24 03:30 Oxymask 3 02/25/24 03:15 02/25/24 03:00 02/25/24 02:57 02/25/24 02:55 02/25/24 02:48 02/25/24 02:42 02/25/24 02:33 02/25/24 02:21 02/25/24 02:18 02/25/24 01:45 02/25/24 01:30 Room Air 02/25/24 01:12 02/25/24 01:06 02/25/24 00:54 02/25/24 00:30 02/25/24 00:00 Room Air 02/24/24 23:51 Room Air 02/24/24 23:42 Room Air 02/24/24 23:39 Room Air 02/24/24 23:18 Room Air 02/24/24 22:56 02/24/24 21:38 Room Air 02/24/24 20:42 Room Air 02/24/24 20:17 96 Room Air 02/24/24 19:25 Room Air PG Care Time/CCT Total # of Minutes Spent Total Time Spent with Patient: Total time spent is greater than 50% in coordination of care (as documented) at patient's floor/unit and/or counseling patient: Coding Level of Care Code 30907 SUB INP/OBS CARE 3/50MIN Diagnoses Acute CVA (cerebrovascular accident) I63.9
[2024-02-25 07:23] LABS: Estimated Average Glucose 151 mg/dl; Hemoglobin A1C 6.9 % (4.5-5.6)
[2024-02-25] MEDS: ICU Protocol for HYPERglycemia SCH (07:39)
[2024-02-25] MEDS: LEVOTHYROXINE SODIUM 88 MCG TABLET PO SCH (08:04)
--- NOTE | 2024-02-25 08:41 | Cardiology Consultation ---
Date of Consultation February 25, 2024 Assessment & Plan (1) Stroke: (2) Hyperlipidemia: (3) Hypertension: Plan 1. Cryptogenic stroke: The cause of stroke appears unknown, although her presentation seems a little bit unusual. She does not seem to have atherosclerotic disease to explain it although does have risk factors. We do not have evidence of atrial fibrillation but I agree this is a distinct possibility and I agree with long-term monitoring. With formal review of her echocardiogram pending she does not appear to have a nldyx-yy-disy shunt to explain a paradoxical embolism. We could consider 30-day monitoring although the yield would be low, an implantable loop recorder is likely the best option. If it is felt that she had an embolic stroke I think we should implant a loop recorder before discharge. I did discuss this with her and her with her family present and they are in agreement. 2. Hyperlipidemia: Her cholesterol this morning is quite elevated, 237 with an HDL of 42. This yields a non-HDL cholesterol of 195 which is markedly elevated. She does not appear to be on cholesterol medications at home, she is now on rosuvastatin which despite no clear evidence of this being atherosclerotic I agree with this treatment. 3. Hypertension: Her blood pressure seems quite labile both here and prior to admission, she seems to only be on lisinopril as an outpatient and did not think here. I will leave acute treatment of her hypertension to neurology, however over the long run beta-blockade might be beneficial as often labile blood pressure is catecholamine induced. If she has atrial fibrillation this might help as well. She has left ventricular hypertrophy on her prior echocardiogram which is most likely due to longstanding hypertension. This is also often treated with beta-blockade. History of Present Illness Reason for Consultation: Cryptogenic stroke Attending Physician: Carlota Ponce MD History of Present Illness This is a 74-year-old woman with a history of hypothyroidism, hypertension and hyperlipidemia but no known atherosclerotic disease who presented on February 24, 2024 with about 48 hours of intermittent neurologic symptoms, on presentation she had an expressive aphasia and CT evaluation suggested a chronic right frontal lobe infarct. An acute infarct was not identified. She had no stenosis of her carotid arteries or cervical vessels. She was given aspirin and Plavix. Her daughter stayed with her in the room. In the early hours of February 25, 2024 she had what is likely seizure activity and she was transferred to the ICU. She appeared to have a postictal state. She did have an echocardiogram on June 17, 2021 where she had mild concentric left ventricular hypertrophy but otherwise unremarkable. Electrocardiography does show a left axis deviation consistent with left anterior fascicular block and poor R wave progression but this can also be due to LAFB. An echocardiogram is pending but on preliminary review does not appear to be contributory, no clear evidence of intravascular shunt. When I evaluated her in her room she was very sleepy, ultimately we were able to arouse her and she did not seem to be oriented but it was difficult to wake her up. She appeared to be moving appropriately and responding appropriately. I did evaluate her with her and other family members present. Allergies Allergy/AdvReac Type Severity Reaction Status Date / Time codeine Allergy Severe Swelling Verified 01/23/24 10:30 of Lip/Tongue/Throat meloxicam [From Mobic] Allergy Intermediate Hives Verified 01/23/24 10:30 nitrofurantoin Allergy Intermediate Gastrointestinal Verified 01/23/24 10:30 [From Macrobid] Upset Sulfa (Sulfonamide Allergy Intermediate Rash Verified 01/23/24 10:30 Antibiotics) sulfamethoxazole Allergy Intermediate Rash Verified 01/23/24 10:30 ciprofloxacin AdvReac Intermediate GI upset Verified 01/23/24 10:30 Kijruds-OHV-UwB Reductase AdvReac Intermediate myalgias Verified 01/23/24 10:30 Inhibitor Home Medications Medication Instructions Recorded Confirmed Type cholecalciferol (vitamin D3) 50 2,000 units PO DAILY #30 tabs 12/06/18 02/24/24 History mcg (2,000 unit) tablet cyanocobalamin (vitamin B-12) 500 1,000 mcg PO DAILY 02/22/19 02/24/24 History mcg tablet dicyclomine 10 mg capsule 10 mg PO BID PRN abdominal pain 02/21/23 02/24/24 Rx #180 caps metformin 500 mg tablet 500 mg PO BID #180 tabs 02/21/23 02/24/24 Rx blood sugar diagnostic (Blood #100 ea 03/16/23 01/23/24 Rx Glucose Test strips) lancets 33 gauge #100 ea 03/16/23 01/23/24 Rx omeprazole 20 mg capsule,delayed 20 mg PO DAILY PRN reflux #90 caps 05/08/23 02/24/24 Rx release docusate sodium 100 mg capsule 100 mg PO HS PRN Constipation 05/26/23 02/24/24 History (Colace) Wheeled Walker #1 ea 06/23/23 01/23/24 Rx lisinopril 10 mg tablet 10 mg PO HS #90 tabs 07/03/23 02/24/24 Rx levothyroxine 88 mcg tablet 88 mcg PO DAILY #90 tabs 11/06/23 02/24/24 Rx miscellaneous medical supply 02/24/24 02/24/24 History Patient History Medical History Trochanteric bursitis, right hip Degenerative joint disease of left hip Varicose veins of legs Diverticular disease denies h/o diverticulitis Surgical History Status post right hip replacement (2000) History of left hip replacement (06/2023) June 2023 History of colonoscopy History of tooth extraction History of knee replacement left-2007; right-2016 History of hysterectomy 1989, one ovary remains S/P sclerotherapy of varicose veins left leg 1987 Family History Mother Coronary heart disease History of mastectomy Father Coronary heart disease Patient's father is AGE 72 DUE TO HEART DISEASE Diabetes Hyperlipidemia Hypertension Brother Coronary heart disease Pulmonary fibrosis Aunt Breast cancer Grandmother (Paternal) Myocardial infarction OF AR @ AGE 50 Daughter Diabetes Denies family history of Ovarian cancer Prostate cancer Colorectal cancer Social History Smoking Status: Never smoker Second Hand Exposure: No; Do You Dip or Chew Tobacco: No; Hx Alcohol Use: No Hx Substance Use: No Preferred Language: Greenlandic Communication Ability: Effective Visual Impairment: No Limitations Hearing Ability: Normal Gas Appliance Mechanic Required: No Beliefs That Will Affect Care: None marital status: Current Living Situation: Spouse current occupational status: retired Feels Safe at Home: Yes Childhood Exposure to Second-Hand Smoke: Yes Diet: low salt and regular Diet Comment: regular caffeine: Yes (chocolate) during the past year weight has: remained stable Dental Care, Regularly: Yes Physical Activity Frequency: Daily Physical Activity Frequency Comment: house chores Seatbelt Use: always Sunscreen Use: Yes Assistive Devices: Walker Review of Systems Review of Systems: All systems reviewed & are unremarkable except as noted in HPI & below With her current cognitive state she appears to be oriented but I am not sure her review of systems is trustworthy Physical Exam Physical Exam: Constitutional: Alert, cooperative and in no distress although very sleepy as noted in the HPI. HEENT: Unremarkable Neck: No jugular venous distention, carotid pulses are normal and equal bilaterally without bruits. Pulmonary: Clear to auscultation bilaterally. Cardiac: Regular rhythm with no murmur, gallop or rub. Abdomen: Soft, nontender with normal bowel sounds. Extremities: No edema. Distal pulses intact. Neurologic: No focal findings on brief exam. Skin: No rash, ecchymoses or petechiae. Results & Data Vital Signs (Past 12 Hours) Vital Signs Temp Pulse Pulse Resp BP BP Pulse Ox 02/25/24 08:06 36.6 C 66 20 97 02/25/24 08:00 144/74 H 02/25/24 07:45 36.6 C 71 18 97 02/25/24 07:42 36.5 C 68 18 97 02/25/24 07:39 36.5 C 72 21 97 02/25/24 07:30 02/25/24 07:21 36.5 C 76 23 99 02/25/24 07:19 82 02/25/24 07:15 36.6 C 88 23 98 02/25/24 07:00 156/91 H 02/25/24 06:57 36.6 C 63 20 99 02/25/24 06:51 36.6 C 72 21 99 02/25/24 06:45 36.7 C 83 24 99 02/25/24 06:33 36.7 C 79 20 99 02/25/24 05:00 36.6 C 80 24 145/89 H 98 02/25/24 04:20 36.7 C 87 16 148/87 H 99 02/25/24 04:20 02/25/24 04:20 88 02/25/24 04:17 90 20 148/89 H 98 02/25/24 04:00 90 19 158/90 H 98 02/25/24 03:30 88 19 118/74 98 02/25/24 03:15 130/75 02/25/24 03:00 115/63 02/25/24 02:57 134/72 02/25/24 02:55 153/75 H 02/25/24 02:48 60 21 02/25/24 02:42 61 18 02/25/24 02:33 61 16 02/25/24 02:21 67 14 02/25/24 02:18 79 14 02/25/24 01:45 58 L 20 02/25/24 01:30 57 L 21 162/85 H 96 02/25/24 01:12 60 22 02/25/24 01:06 65 19 02/25/24 00:54 60 22 02/25/24 00:30 60 14 02/25/24 00:00 60 18 158/68 H 97 02/24/24 23:51 60 19 94 02/24/24 23:42 58 L 19 92 02/24/24 23:39 61 19 95 02/24/24 23:18 64 22 97 02/24/24 22:56 60 02/24/24 21:38 65 18 168/78 H 97 02/24/24 20:42 68 18 151/77 H 95 Pulse Ox O2 Del Method O2 Del Method O2 Flow Rate O2 Flow Rate 02/25/24 08:06 Oxymask 3 02/25/24 08:00 02/25/24 07:45 02/25/24 07:42 02/25/24 07:39 02/25/24 07:30 Oxymask 3 02/25/24 07:21 02/25/24 07:19 02/25/24 07:15 02/25/24 07:00 02/25/24 06:57 02/25/24 06:51 02/25/24 06:45 02/25/24 06:33 02/25/24 05:00 Oxymask 3 02/25/24 04:20 Oxymask 3 02/25/24 04:20 99 Oxymask 3 02/25/24 04:20 02/25/24 04:17 Oxymask 3 02/25/24 04:00 Oxymask 3 02/25/24 03:30 Oxymask 3 02/25/24 03:15 02/25/24 03:00 02/25/24 02:57 02/25/24 02:55 02/25/24 02:48 02/25/24 02:42 02/25/24 02:33 02/25/24 02:21 02/25/24 02:18 02/25/24 01:45 02/25/24 01:30 Room Air 02/25/24 01:12 02/25/24 01:06 02/25/24 00:54 02/25/24 00:30 02/25/24 00:00 Room Air 02/24/24 23:51 Room Air 02/24/24 23:42 Room Air 02/24/24 23:39 Room Air 02/24/24 23:18 Room Air 02/24/24 22:56 02/24/24 21:38 Room Air 02/24/24 20:42 Room Air Laboratory Results Cardiac Enzymes 02/24/24 02/25/24 Range/Units 16:06 06:26 AST 14 14 (13-39) U/L Coagulation 02/24/24 Range/Units 16:06 PT 10.8 (9.0-12.0) Seconds APTT 26 (21-31) Seconds Lipids 02/25/24 Range/Units 06:26 Triglycerides 140 (0-150) mg/dl Cholesterol 237 H (0-200) mg/dl HDL Cholesterol 42 mg/dl Cholesterol/HDL Ratio 5.6 H (0-5) CBC 02/24/24 02/25/24 Range/Units 16:06 06:26 WBC 9.12 8.14 (4.8-10.8) K/ul RBC 4.73 4.40 (4.20-5.40) M/uL Hgb 14.2 13.5 (12.0-16.0) g/dl Hct 43.4 40.8 (37.0-47.0) % Plt Count 171 152 (130-400) K/uL Neut # (Auto) 5.46 (1.40-6.50) K/uL Lymph # (Auto) 1.81 (1.20-3.40) K/uL Cannon # (Auto) 0.71 H (0.11-0.59) K/uL Eos # (Auto) 0.06 (0.00-0.50) K/uL Baso # (Auto) 0.04 (0.00-0.20) K/uL Comprehensive Metabolic Panel 02/24/24 02/25/24 Range/Units 16:06 06:26 Sodium 139 140 (136-145) mmol/L Potassium 4.0 3.9 (3.5-5.1) mmol/L Chloride 103 107 (98-107) mmol/L Carbon Dioxide 28 26 (21-32) mmol/L BUN 14 10 (6-23) mg/dl Creatinine 0.84 0.65 (0.6-1.2) mg/dl Glucose 105 H 138 H (70-99(Fasting)) mg/dl Calcium 9.5 8.7 (8.6-10.3) mg/dl AST 14 14 (13-39) U/L ALT 10 9 (7-52) U/L Alkaline Phosphatase 65 48 (34-104) U/L Total Protein 7.2 6.4 (6.0-8.3) gm/dl Albumin 4.2 3.6 (3.4-5.0) gm/dl Intake and Output 02/24/24 02/25/24 02/25/24 22:59 06:59 14:59 Intake Total 1100 / 1100 96.667 / 96.667 Output Total 225 / 225 75 / 75 Balance 1100 / 875 -225 / 875 21.667 / 21.667 Intake: IV 1100 / 1100 96.667 / 96.667 Magnesium Sulfate / D5w 1 gm In 100 / 100 96.667 / 96.667 100 ml @ 50 mls/hr IV Q2H DOMINICK Rx#:[id number] Sodium Chloride 0.9% 1,000 ml @ 1000 / 1000 999 mls/hr IV .Q1H1M ONE Rx#: [id number] Output: Urine Amount (Catheter) 225 / 225 75 / 75 Crooks/Indwelling 225 / 225 75 / 75 Other: Other Intake Source npo Weight 69.6 kg 78.7 kg Weight Measurement Method Built in [facility] Diagnostic Findings Telemetry: Sinus rhythm, no atrial fibrillation or other abnormality identified. PG Care Time/CCT Total # of Minutes Spent Total Time Spent with Patient: Total time spent is greater than 50% in coordination of care (as documented) at patient's floor/unit and/or counseling patient: Coding Level of Care Code 80585 INT INP/OBS CARE 3/75MIN Diagnoses Stroke I63.9 Hyperlipidemia E78.5 Hypertension I10
[2024-02-25] MEDS ORDERED: levETIRAcetam 250 MG TAB PO SCH (09:00)
[2024-02-25] MEDS ORDERED: levETIRAcetam 500 MG TAB PO SCH (09:00)
[2024-02-25] MEDS: levETIRAcetam 500 MG/5 ML VIAL IV SCH (09:23)
[2024-02-25] MEDS: ASPIRIN 81 MG ECTAB PO SCH (09:23)
[2024-02-25] MEDS: CLOPIDOGREL BISULFATE 75 MG TAB PO SCH (09:23)
[2024-02-25] MEDS: GADOBUTROL 65ML VIAL IV ONE (11:33)
--- NOTE | 2024-02-25 12:02 | Magnetic Resonance Report ---
MRI OF THE BRAIN WITHOUT AND WITH IV CONTRAST CLINICAL HISTORY: Cerebrovascular accident. Slurred speech. Seizure activity. COMPARISON STUDY: Head CT and CTA of the head February 24, 2024. Head CT February 25, 2024. TECHNIQUE: Utilizing a 1.5 Tracee magnet and dedicated coil, multiplanar, multiecho imaging of the br ain was performed pre and postcontrast administration. IV administration of 7.8 mL of Gadavist contr ast was uneventful. FINDINGS: There is a 1.3 cm hyperintense focus within the left holden radiata on axial diffusion-weig hted sequence image 15 of 24. This is isointense on the ADC map. There is corresponding T2 hyperinten sity and mild patchy enhancement. There is no mass effect. A 4.8 x 3.5 cm focus of signal abnormality with volume loss within the right frontal lobe on axial image 16 of 24 has inherent gyriform T1 hype rintensity with minimal enhancement. This demonstrates significant hypointensity consistent with bloo yumiok artifact on the gradient echo sequence. Basal cisterns are patent. There are no extra-axial lesvia ections. Flow-voids for the major intracranial vessels are present. There is no intracranial mass. IMPRESSION: 1. 1.3 cm focus of signal abnormality within the left holden radiata which is hyperintense on the dif fusion-weighted sequence and isointense on the ADC map with minimal patchy enhancement. This is sugge stive of a subacute infarct. 2. 4.8 x 3.5 cm focus of signal abnormality with volume loss within the right frontal lobe with appar ent gyriform T1 hyperintensity/laminar necrosis and blooming artifact. This favors an old hemorrhagic infarct. 3. No intracranial mass. ACT 112: Negative or not required by law. Electronically signed by: Mart Ramirez M.D. 02/25/2024 12:00 PM
--- NOTE | 2024-02-25 12:22 | Magnetic Resonance Report ---
MRA OF THE INTRACRANIAL CIRCULATION WITHOUT CONTRAST CLINICAL HISTORY: eval following worsening CVA symptoms with seizure COMPARISON STUDY: CTA of the head and head CT February 24, 2024. TECHNIQUE: Utilizing a 1.5 Tracee magnet and 3-D [id number] technique, unenhanced MRA of the intra cranial circulation was obtained. FINDINGS: This exam is moderately compromised by motion artifact. The bilateral M1, M2, A1 and A2 seg ments are patent. No large vessel occlusion is identified. There is a 3 mm outpouching arising from t he undersurface of the distal right middle cerebral artery, just proximal to the bifurcation. This ma y reflect an intracranial aneurysm or infundibulum. No additional intracranial aneurysms are identifi ed. Posterior circulation is intact. IMPRESSION: 1. Exam moderately compromised by motion artifact. No large vessel occlusion. 2. 3 mm outpouching arising from the distal right middle cerebral artery, just proximal to the bifurc ation. This favors a small saccular aneurysm. An infundibulum could appear similar. ACT 112: Negative or not required by law. Electronically signed by: Mart Ramirez M.D. 02/25/2024 12:20 PM
--- NOTE | 2024-02-25 15:22 | Electroencephalogram ---
EEG Procedure Note Date of Service February 25, 2024 Start / End Times Start Time: 1208 End Time: 1228 Referring Physician yolande wetzel History confusion Home Medication List Medication Instructions Recorded Confirmed Type cholecalciferol (vitamin D3) 50 2,000 units PO DAILY #30 tabs 12/06/18 02/24/24 History mcg (2,000 unit) tablet cyanocobalamin (vitamin B-12) 500 1,000 mcg PO DAILY 02/22/19 02/24/24 History mcg tablet dicyclomine 10 mg capsule 10 mg PO BID PRN abdominal pain 02/21/23 02/24/24 Rx #180 caps metformin 500 mg tablet 500 mg PO BID #180 tabs 02/21/23 02/24/24 Rx blood sugar diagnostic (Blood #100 ea 03/16/23 01/23/24 Rx Glucose Test strips) lancets 33 gauge #100 ea 03/16/23 01/23/24 Rx omeprazole 20 mg capsule,delayed 20 mg PO DAILY PRN reflux #90 caps 05/08/23 02/24/24 Rx release docusate sodium 100 mg capsule 100 mg PO HS PRN Constipation 05/26/23 02/24/24 History (Colace) Wheeled Walker #1 ea 06/23/23 01/23/24 Rx lisinopril 10 mg tablet 10 mg PO HS #90 tabs 07/03/23 02/24/24 Rx levothyroxine 88 mcg tablet 88 mcg PO DAILY #90 tabs 11/06/23 02/24/24 Rx miscellaneous medical supply 02/24/24 02/24/24 History Inpatient Medication List Aspirin (Aspirin 81 Mg Ectab) 81 mg PO DAILY DOMINICK Stop: 03/26/24 08:59 Last Admin: 02/25/24 09:23 Dose: Not Given Documented By: RAMANDEEP Clopidogrel Bisulfate (Clopidogrel Bisulfate 75 Mg Tab) 75 mg PO QAM DOMINICK Stop: 03/26/24 08:59 Last Admin: 02/25/24 09:23 Dose: Not Given Documented By: RAMANDEEP Levetiracetam (Levetiracetam 500 Mg/5 Ml Vial) 750 mg IV BID DOMINICK Stop: 03/26/24 08:59 Last Admin: 02/25/24 09:23 Dose: 750 mg Documented By: RAMANDEEP Levothyroxine Sodium (Levothyroxine Sodium 88 Mcg Tablet) 88 mcg PO DAILYBB DOMINICK Stop: 03/26/24 06:29 Last Admin: 02/25/24 08:04 Dose: Not Given Documented By: RAMANDEEP Miscellaneous (Icu Protocol For Hyperglycemia) 1 each N/A Q6 DOMINICK Stop: 02/27/24 05:59 Last Admin: 02/25/24 12:02 Dose: Not Given Documented By: Admin: 02/25/24 07:39 Dose: Not Given Documented By: RAMANDEEP Discontinued Medications Aspirin (Aspirin 81 Mg Ectab) 81 mg PO NOW STA Stop: 02/24/24 18:26 Last Admin: 02/24/24 18:40 Dose: 81 mg Documented By: DAMIAN Atorvastatin Calcium (Atorvastatin 40 Mg Tab) 40 mg PO QPM DOMINICK Stop: 03/25/24 19:24 Last Admin: 02/24/24 20:27 Dose: Not Given Documented By: JASMIN Clopidogrel Bisulfate (Clopidogrel Bisulfate 300 Mg Tab) 300 mg PO NOW STA Stop: 02/24/24 18:26 Last Admin: 02/24/24 18:40 Dose: 300 mg Documented By: DAMIAN Gadobutrol (Gadobutrol 65ml Vial) 7.8 ml IV ONCE ONE Stop: 02/25/24 11:32 Last Admin: 02/25/24 11:33 Dose: 7.8 ml Documented By: [facility] Sodium Chloride (Nss) 1,000 mls @ 999 mls/hr IV .Q1H1M ONE Stop: 02/24/24 17:54 Last Infusion: 02/24/24 18:47 Dose: Infused Documented By: Admin: 02/24/24 17:12 Dose: 999 mls/hr Documented By: DAMIAN Magnesium Sulfate/Dextrose (Magnesium Sulfate / D5w) 1 gm in 100 mls @ 100 mls/hr IV NOW STA Stop: 02/24/24 17:56 Last Infusion: 02/24/24 18:46 Dose: Infused Documented By: Admin: 02/24/24 17:12 Dose: 100 mls/hr Documented By: DAMIAN Magnesium Sulfate/Dextrose (Magnesium Sulfate / D5w) 1 gm in 100 mls @ 50 mls/hr IV Q2H DOMINICK Stop: 02/25/24 08:03 Last Infusion: 02/25/24 10:00 Dose: Infused Documented By: Admin: 02/25/24 08:08 Dose: 50 mls/hr Documented By: Infusion: 02/25/24 08:08 Dose: Infused Documented By: Admin: 02/25/24 06:12 Dose: 50 mls/hr Documented By: DAVID Ioversol (Optiray 320 125ml) 119 ml IV ONCE ONE Stop: 02/24/24 17:46 Last Admin: 02/24/24 17:46 Dose: 119 ml Documented By: ISABELLA Levetiracetam (Levetiracetam 500 Mg/5 Ml Vial) 2,800 mg 40 mg/kg (2800 mg) IV NOW STA Stop: 02/25/24 02:57 Last Admin: 02/25/24 03:05 Dose: 2,800 mg Documented By: NASRIN Lorazepam (Lorazepam 1 Mg/1 Ml Syr Ed Inj Use) Confirm Administered Dose 2 mg .ROUTE .STK-MED ONE Stop: 02/25/24 02:55 Last Admin: 02/25/24 03:07 Dose: Not Given Documented By: NASRIN Lorazepam (Lorazepam 1 Mg/1 Ml Syr Ed Inj Use) 2 mg IV ONE STA Stop: 02/25/24 02:57 Last Admin: 02/25/24 02:58 Dose: 2 mg Documented By: NASRIN Rosuvastatin Calcium (Rosuvastatin Calcium 10 Mg Tab) 10 mg PO QPM DOMINICK Stop: 03/25/24 20:59 Last Admin: 02/24/24 20:42 Dose: Not Given Documented By: JASMIN Description This is a 21 electrode EEG with a single channel dedicated to limited EKG. The electrodes were placed in accordance with the International 10-20 system. Interpretation This is a 21 electrode EEG with a single channel dedicated to limited EKG. The electrodes were placed in accordance with the International 10-20 system. There is a posterior dominant rhythm of 8 Hz which is symmetrically distributed and attenuates with eye opening. There is a normal anterior to pos terior organization. Photic stimulation: unremarkable Hyperventilation performed: ___ unremarkable; _x_ not performed. There is no focal slowing. No epileptiform abnormalities. Sleep stage: _x_ not achieved, ___drowsy state, ___ Stage II, ___ REM stage achieved. Interpretation Normal-appearing awake/sleep EEG. A normal EEG does not completely exclude a diagnosis of epilepsy. [facility] EEG Procedure Codes Indication for Procedure (1) Seizure-like activity: Neurology Neurology: 82414 EEG include record awake & drowsy
--- NOTE | 2024-02-25 15:24 | Neurology Consultation ---
Date of Consultation February 25, 2024 Assessment & Plan (1) Stroke: History of Present Illness Attending Physician: Carlota Ponce MD History of Present Illness S: pt now feeling well. speech back to baseline. mri brain noted for acute ischemic stroke left subcortical and old rt frontal hemorrhagic stroke appearing lesion. EEG unremarkable. chart reviewed. Admission HPI:This is a 74-year-old female who has approximately 48-hour history of expressive aphasia/word finding difficulty. Presented to the ER today for further evaluation and treatment. In the emergency department she had a Noncon CT of the brain which was negative for acute findings. We are called entertain admission. We recommended stat CTAs of the head and neck and consultation with teleneurology/telestroke for antiplatelet recommendations prior to admission. CTAs of the head and neck were negative for acute findings or critical stenoses. ER provider did speak with telestroke on-call who is recommending dual antiplatelet therapy therefore the patient was loaded with Plavix 300 and aspirin. Will continue the aspirin and Plavix daily. We have added statin therapy. Will do permissive hypertension for another 24 hours until we get the MRI results. Do an echocardiogram in the morning and consult neurology formally. Allergies Allergy/AdvReac Type Severity Reaction Status Date / Time codeine Allergy Severe Swelling Verified 01/23/24 10:30 of Lip/Tongue/Throat meloxicam [From Mobic] Allergy Intermediate Hives Verified 01/23/24 10:30 nitrofurantoin Allergy Intermediate Gastrointestinal Verified 01/23/24 10:30 [From Macrobid] Upset Sulfa (Sulfonamide Allergy Intermediate Rash Verified 01/23/24 10:30 Antibiotics) sulfamethoxazole Allergy Intermediate Rash Verified 01/23/24 10:30 ciprofloxacin AdvReac Intermediate GI upset Verified 01/23/24 10:30 [id number] Reductase AdvReac Intermediate myalgias Verified 01/23/24 10:30 Inhibitor Home Medications Medication Instructions Recorded Confirmed Type cholecalciferol (vitamin D3) 50 2,000 units PO DAILY #30 tabs 12/06/18 02/24/24 History mcg (2,000 unit) tablet cyanocobalamin (vitamin B-12) 500 1,000 mcg PO DAILY 02/22/19 02/24/24 History mcg tablet dicyclomine 10 mg capsule 10 mg PO BID PRN abdominal pain 02/21/23 02/24/24 Rx #180 caps metformin 500 mg tablet 500 mg PO BID #180 tabs 02/21/23 02/24/24 Rx blood sugar diagnostic (Blood #100 ea 03/16/23 01/23/24 Rx Glucose Test strips) lancets 33 gauge #100 ea 03/16/23 01/23/24 Rx omeprazole 20 mg capsule,delayed 20 mg PO DAILY PRN reflux #90 caps 05/08/23 02/24/24 Rx release docusate sodium 100 mg capsule 100 mg PO HS PRN Constipation 05/26/23 02/24/24 History (Colace) Wheeled Walker #1 ea 06/23/23 01/23/24 Rx lisinopril 10 mg tablet 10 mg PO HS #90 tabs 07/03/23 02/24/24 Rx levothyroxine 88 mcg tablet 88 mcg PO DAILY #90 tabs 11/06/23 02/24/24 Rx miscellaneous medical supply 02/24/24 02/24/24 History Patient History Medical History Trochanteric bursitis, right hip Degenerative joint disease of left hip Varicose veins of legs Diverticular disease denies h/o diverticulitis Surgical History Status post right hip replacement (2000) History of left hip replacement (06/2023) June 2023 History of colonoscopy History of tooth extraction History of knee replacement left-2007; right-2016 History of hysterectomy 1989, one ovary remains S/P sclerotherapy of varicose veins left leg 1987 Family History Mother Coronary heart disease History of mastectomy Father Coronary heart disease Patient's father is AGE 72 DUE TO HEART DISEASE Diabetes Hyperlipidemia Hypertension Brother Coronary heart disease Pulmonary fibrosis Aunt Breast cancer Grandmother (Paternal) Myocardial infarction OF [place] @ AGE 50 Daughter Diabetes Denies family history of Ovarian cancer Prostate cancer Colorectal cancer Social History Smoking Status: Never smoker Second Hand Exposure: No; Do You Dip or Chew Tobacco: No; Hx Alcohol Use: No Hx Substance Use: No Preferred Language: Occitan Communication Ability: Effective Visual Impairment: No Limitations Hearing Ability: Normal Payroll And Benefits Manager Required: No Beliefs That Will Affect Care: None marital status: Current Living Situation: Spouse current occupational status: retired Feels Safe at Home: Yes Childhood Exposure to Second-Hand Smoke: Yes Diet: low salt and regular Diet Comment: regular caffeine: Yes (chocolate) during the past year weight has: remained stable Dental Care, Regularly: Yes Physical Activity Frequency: Daily Physical Activity Frequency Comment: house chores Seatbelt Use: always Sunscreen Use: Yes Assistive Devices: Walker Review of Systems Review of Systems: All systems reviewed & are unremarkable except as noted in Subjective Constitutional: as per Subjective / HPI Eyes: as per Subjective / HPI Ear, Nose, Mouth, Throat: as per Subjective / HPI Respiratory: as per Subjective / HPI Cardiovascular: as per Subjective / HPI Gastrointestinal: as per Subjective / HPI Musculoskeletal: as per Subjective / HPI Integumentary: as per Subjective / HPI Neurologic: as per Subjective / HPI Psychiatric: as per Subjective / HPI Endocrine: as per Subjective / HPI Hematologic / Lymphatic: as per Subjective / HPI Allergy / Immunological: as per Subjective / HPI Exam (Neuro) Physical Exam: HEENT: normocephalic Neuro: Mental: AOx4, fluent speech, normal comprehension, no apraxia, no L/R confusion, no neglect CN: PERRL, Full EOM, symmetric face, midline T/U/P, 5/5 SCM/traps. Motor: No abnormal movements, normal tone and bulk, RUE: 4/5 t/o, LUE: 4+/5 t/o. b/l LE: 4/5 diffuse, poor effort. Sens: intact to touch b/l grossly Coord: intact FNT b/l DTR: 1+ sym b/l Impression: 74 yo female with acute left subcortical ischemic stroke with resolved aphasia and confusion and no further seizure like event. Pt also with old rt frontal hemorrhagic lesion. Recommendations: 1. Standard stroke work up as planned 2. antiplatelet therapy: * DAPT (dual antiplatelet therapy): start for pts with ABCD2 score 4 or higher. Initial loading dose with ASA 325mg and Plavix 300mg (if pt has not been started), then ASA 81mg daily and Plavix 75mg daily. Continue DAPT for 21 days if found small vessel disease only or continue for 90 days if found to have intracranial large artery atherosclerosis. After that, can continue single antiplatelet therapy (either ASA or Plavix). -ok to continue keppra for now, change c margie to PO 500mg po bid and likely continue for a week and plan to stop after that if pt doing well. I do not feel she needs [facility] AED. EEG essentially unremarkable. 3. Images: TTE with bubble 4. Permissive Hypertension for next 24-4 8 hrs. Keep SBP goal range less than 220. Avoid hypotension. Do not stop beta-cory if on it. 5. If noted for large intracranial vesse l stenosis, slow reduction of BP and allowing permissive HTN next 5-7 days. 6. Long-term SBP goal less than 130. 7. Plenty of hydration including IV flui d if possible (use isotonic solution) next 1-2 days. Avoid hypovolemia and hypotension. 8. Initiate DVT prevention therapy. 9. Avoid hypoglycemia, serum glucose goa l during hospitalization: 140-180. 10. Long-term HgA1c goal less than 7. 11. Start statin if not on it and no abs olute contraindication, long-term LDL goal less than 70. 12. Head of bed up 30 degrees if possibl e. 13. Stroke education by nursing and appr opriate staff. 14. Telemetry monitoring. Consider continuous churn buttermaker cardiac monitoring, i.e. MCOT (m obile cardiac outpatient telemetry) or ICM (insertable punch press operator helper, e.g. LINQ), if never had continuous churn buttermaker cardiac monitoring done previously. And if found to have atrial flutter or fibrillation, should consider anticoagulation therapy if no contraindication. 15. Fall precaution . 16. Consult physical and occupational th erapy and speech path evaluation. Chart reviewed I have spent more than 50% educating patient about potential diagnosis and neurological evaluation and coordinating care with patient's treatment team. Total time spent (including chart review and coordination of care): 60 min (this includes chart review). Results & Data Vital Signs (Past 12 Hours) Vital Signs Temp Pulse Pulse Resp BP BP Pulse Ox 02/25/24 13:27 36.5 C 88 20 94 02/25/24 13:00 134/77 02/25/24 10:39 36.4 C L 55 L 17 93 02/25/24 10:00 143/93 H 02/25/24 10:00 36.4 C L 72 21 97 01/05/25 09:09 36.4 C L 79 22 98 02/25/24 09:00 144/79 H 02/25/24 08:57 36.0 C L 74 14 99 02/25/24 08:06 36.6 C 66 20 97 02/25/24 08:00 144/74 H 02/25/24 07:45 36.6 C 71 18 97 02/25/24 07:42 36.5 C 68 18 97 02/25/24 07:39 36.5 C 72 21 97 02/25/24 07:30 02/25/24 07:21 36.5 C 76 23 99 02/25/24 07:19 82 02/25/24 07:15 36.6 C 88 23 98 02/25/24 07:00 156/91 H 02/25/24 06:57 36.6 C 63 20 99 02/25/24 06:51 36.6 C 72 21 99 02/25/24 06:45 36.7 C 83 24 99 02/25/24 06:33 36.7 C 79 20 99 02/25/24 05:00 36.6 C 80 24 145/89 H 98 02/25/24 04:20 36.7 C 87 16 148/87 H 99 02/25/24 04:20 02/25/24 04:20 88 02/25/24 04:17 90 20 148/89 H 98 02/25/24 04:00 90 19 158/90 H 98 02/25/24 03:30 88 19 118/74 98 Pulse Ox O2 Del Method O2 Del Method O2 Flow Rate O2 Flow Rate 02/25/24 13:27 Room Air 02/25/24 13:00 02/25/24 10:39 02/25/24 10:00 02/25/24 10:00 Room Air 02/25/24 09:09 02/25/24 09:00 02/25/24 08:57 02/25/24 08:06 Oxymask 3 02/25/24 08:00 02/25/24 07:45 02/25/24 07:42 02/25/24 07:39 02/25/24 07:30 Oxymask 3 02/25/24 07:21 02/25/24 07:19 02/25/24 07:15 02/25/24 07:00 02/25/24 06:57 02/25/24 06:51 02/25/24 06:45 02/25/24 06:33 02/25/24 05:00 Oxymask 3 02/25/24 04:20 Oxymask 3 02/25/24 04:20 99 Oxymask 3 02/25/24 04:20 02/25/24 04:17 Oxymask 3 02/25/24 04:00 Oxymask 3 02/25/24 03:30 Oxymask 3 PG Care Time/CCT Total # of Minutes Spent Total Time Spent with Patient: Total time spent is greater than 50% in coordination of care (as documented) at patient's floor/unit and/or counseling patient: Coding Level of Care Code 24660 IN/OBS CONSULT LVL 4,60M Diagnoses Cerebrovascular accident (CVA), unspecified mechanism I63.9 CVA mechanism: unspecified (1) Stroke CVA mechanism: unspecified Qualified Code(s): I63.9 - Cerebral infarction, unspecified
[2024-02-25] MEDS: ASPIRIN 81 MG ECTAB PO ONE (15:40)
[2024-02-25] MEDS: CLOPIDOGREL BISULFATE 75 MG TAB PO ONE (15:40)
--- NOTE | 2024-02-25 15:42 | XCELERA ---
[id number] \\[id number]
[2024-02-25] MEDS: ROSUVASTATIN CALCIUM 20 MG TAB PO SCH (21:20)
[2024-02-26 04:54] LABS: Basophils # (auto) 0.05 K/uL (0.00-0.20); Basophils % (auto) 0.4 %; Eosinophils # (auto) 0.14 K/uL (0.00-0.50); Eosinophils % (auto) 1.3 %; Hematocrit (blood only) 40.9 % (37.0-47.0); Hemoglobin 13.7 g/dl (12.0-16.0); Immature Granulocytes # (auto) 0.05 K/uL (0.01-0.20); Immature Granulocytes % (auto) 0.4 %; Lymphocytes % (auto) 24.3 %; Mean Corpuscular Hemoglobin 30.6 pg (25.0-34.0); Mean Corpuscular Hgb Conc 33.5 g/dL (32.0-36.0); Mean Corpuscular Volume 91.5 fL (80.0-100.0); Mean Platelet Volume 11.4 fL (9.4-12.4); Monocytes # (auto) 1.01 K/uL (0.11-0.59); Monocytes % (auto) 9.1 %; Neutrophils # (auto) 7.17 K/uL (1.40-6.50); Neutrophils % (auto) 64.5 %; Platelet Count 177 K/uL (130-400); RDW Coefficient of Variation 14.2 % (11.5-14.5); RDW Standard Deviation 47.8 fL (36.4-46.3); Red Blood Count 4.47 M/uL (4.20-5.40); White Blood Count 11.12 K/ul (4.8-10.8)
[2024-02-26 05:10] LABS: Calcium 8.9 mg/dl (8.6-10.3); Creatinine Clr Calc Pharmacy 71.9 ml/min; Potassium 3.8 mmol/L (3.5-5.1)
[2024-02-26] MEDS ORDERED: GLUCOSE 40% GEL 15 GM TUBE PO PRN (08:45)
[2024-02-26] MEDS ORDERED: DEXTROSE 50% 50 ML SYRINGE IV PRN (08:45)
[2024-02-26] MEDS ORDERED: GLUCAGON FOR INJ 1 MG VIAL SQ PRN (08:45)
[2024-02-26] MEDS ORDERED: GLUCOSE 10 TAB/TUBE PO PRN (08:45)
[2024-02-26] MEDS ORDERED: CARBOHYDRATES FOR HYPOGLYCEMIA PO PRN (08:45)
[2024-02-26] MEDS: CHOLECALCIFEROL 25 MCG (1000 UNITS) TAB PO SCH (10:14)
[2024-02-26] MEDS: CYANOCOBALAMIN (B-12) 500 MCG TABLET PO SCH (10:14)
[2024-02-26] MEDS: INSULIN ASPART PER UNIT CHARGE SC SCH (11:45)
--- NOTE | 2024-02-26 12:15 | Pharmacy Report ---
- Date of Service February 26, 2024 - Pharmacy CVA/TIA Medication Review Medications to Prevent Stroke handout has been added to the patients discharge packet. Antiplatelet(s) * clopidogrel 75 mg and ASA 81mg Cholesterol * High intensity statin: rosuvastatin 20 mg daily DVT Prophylaxis * SCD knee Therapeutic Anticoagulation * Per cardiology note: "We do not have evidence of atrial fibrillation but I agree this is a distinct possibility and I agree with long-term monitoring. With formal review of her echocardiogram pending she does not appear to have a [id number] shunt to explain a paradoxical embolism. We could consider 30- day monitoring although the yield would be low, an implantable loop recorder is likely the best option. If it is felt that she had an embolic stroke I think we should implant a loop recorder before discharge." Type 2 Diabetes * Patient has T2DM, but per Dr. Orellana, a diabetes medication with proven CVD benefit will be deferred to their outpatient provider due to familiarity with risks/benefits of such therapies. "Medications to prevent stroke" handout has already been added to the patient's discharge packet, which instructs the patient to follow up with their outpatient provider to evaluate which diabetes medication with proven CVD benefit is best for them
--- NOTE | 2024-02-26 16:16 | Electrocardiogram Report ---
Test Reason : Blood Pressure : */* mmHG Vent. Rate : 60 BPM Atrial Rate : 60 BPM P-R Int : 174 ms QRS Dur : 100 ms QT Int : 416 ms P-R-T Axes : 55 -57 77 degrees QTcB Int : 416 ms Normal sinus rhythm Left anterior fascicular block Minimal voltage criteria for LVH, may be normal variant ( [place] product ) Possible Anterior infarct , age undetermined Abnormal ECG When compared with ECG of 08-Jun-2023 12:54, CA interval has decreased Confirmed by Nikolai Currie ([id number]) on 02/26/2024 4:16:41 PM Referred By: REFERRED SELF Confirmed By: Nikolai Currie
--- NOTE | 2024-02-26 16:22 | Hospitalist Progress Note ---
Date of Service February 26, 2024 Assessment & Plan (1) Acute CVA (cerebrovascular accident): Plan 74 yo F with PMHx of DM II, HTN, Hypothyroidism, GERD brought to the ER for the evaluation of expressive aphasia x48 hrs. Acute ischemic CVA - expressive aphasia with mild right upper extremity weakness, she is able to repeat words, but not able to express her own independent thoughts - NCCT head, CTA head / neck unremarkable for any acute pathology - teleneuro recs DAPT, on asp / plavix at this time - neurology recs apprecaited - MRI brain shows new stroke in the left holden radiata area and old stroke in the left frontal lobe - cont statin, asa, plavix - cont aspiration precautions - cont neuro checks - PT / OT #DM II - hold metformin - A1c 6.9 - monitor BG #HTN - permissive HTN #Hypothyroidism - cont levothyroxine Plan is for rehab or home with home PT Admission and Anticipated Discharge Date Admission Date: February 24, 2024 Subjective patient seen and examined, no new complaints, says she feels better Review of Systems Review of Systems: The patient is awake, alert and oriented 3, well developed and well nourished, normocephalic and atraumatic, lying in bed and in no acute distress. HEENT--PERRL, EOMI, mucous membranes and oropharynx mildly dry Neck--supple. No JVD. No bruits. Thyroid normal, trachea midline, no adenopathy. Heart--normal S1 and S2. No murmurs, rubs or gallops. Lungs--clear bilaterally, no respiratory distress, no accessory muscle use. Abdomen--normal bowel sounds and soft. Extremities--no cyanosis or clubbing. No edema. Dermatologic--normal skin turgor, normal color, no abnormal lymph nodes, no rash. Neurologic--cranial nerves II through XII grossly intact. Rheumatologic--normal range of motion. Psychiatric--normal affect. Results & Data Results & Data Vital Signs (Past 12 Hours) Vital Signs Pulse Resp BP Pulse Ox O2 Del Method 02/26/24 05:09 98 H 22 138/87 92 Room Air PG Care Time/CCT Total # of Minutes Spent Total Time Spent with Patient: Total time spent is greater than 50% in coordination of care (as documented) at patient's floor/unit and/or counseling patient: Coding Level of Care Code 00389 SUB INP/OBS CARE 2/35MIN Diagnoses Acute CVA (cerebrovascular accident) I63.9 Time Spent (min) 35
[2024-02-27 05:11] LABS: Basophils # (auto) 0.05 K/uL (0.00-0.20); Basophils % (auto) 0.4 %; Eosinophils % (auto) 0.9 %; Hematocrit (blood only) 41.3 % (37.0-47.0); Hemoglobin 13.8 g/dl (12.0-16.0); Immature Granulocytes # (auto) 0.06 K/uL (0.01-0.20); Immature Granulocytes % (auto) 0.5 %; Lymphocytes # (auto) 2.54 K/uL (1.20-3.40); Lymphocytes % (auto) 21.7 %; Mean Corpuscular Hemoglobin 30.3 pg (25.0-34.0); Mean Corpuscular Hgb Conc 33.4 g/dL (32.0-36.0); Mean Corpuscular Volume 90.8 fL (80.0-100.0); Mean Platelet Volume 11.8 fL (9.4-12.4); Monocytes # (auto) 1.17 K/uL (0.11-0.59); Neutrophils # (auto) 7.79 K/uL (1.40-6.50); Neutrophils % (auto) 66.5 %; Platelet Count 177 K/uL (130-400); RDW Coefficient of Variation 13.9 % (11.5-14.5); Red Blood Count 4.55 M/uL (4.20-5.40); White Blood Count 11.71 K/ul (4.8-10.8)
[2024-02-27] MEDS: ACETAMINOPHEN 325 MG TAB PO PRN (05:16)
[2024-02-27 05:24] LABS: BUN Creatinine Ratio 17.8 (10-20); Calcium 8.6 mg/dl (8.6-10.3); Creatinine Clr Calc Pharmacy 68.1 ml/min; Potassium 3.7 mmol/L (3.5-5.1)
--- NOTE | 2024-02-27 08:29 | Electrocardiogram Report ---
Test Reason : Blood Pressure : */* mmHG Vent. Rate : 86 BPM Atrial Rate : 86 BPM P-R Int : 218 ms QRS Dur : 100 ms QT Int : 382 ms P-R-T Axes : -3 -54 112 degrees QTcB Int : 457 ms Sinus rhythm with 1st degree A-V block with with occasional Premature ventricular complexes Left anterior fascicular block Poor R wave progression, consider anterior RI vs. lead placement vs. LVH Nonspecific ST and T wave abnormality Minor ST elevation in lead III Abnormal ECG When compared with ECG of 24-Feb-2024 16:04, Premature ventricular complexes now present [place] interval has increased Non-specific change in ST segment in Inferior leads T wave inversion now evident in Lateral leads Confirmed by Da Anderson ([id number] on 02/27/2024 8:28:37 AM Referred By: REFERRED SELF Confirmed By: Da Anderson
--- NOTE | 2024-02-27 13:55 | Hospitalist Progress Note ---
Date of Service February 27, 2024 Assessment & Plan (1) Acute CVA (cerebrovascular accident): Plan 74 yo F with PMHx of DM II, HTN, Hypothyroidism, GERD brought to the ER for the evaluation of expressive aphasia x48 hrs. Acute ischemic CVA - expressive aphasia with mild right upper extremity weakness, she is able to repeat words, but not able to express her own independent thoughts - NCCT head, CTA head / neck unremarkable for any acute pathology - teleneuro recs DAPT, on asp / plavix at this time - neurology recs apprecaited - MRI brain shows new stroke in the left holden radiata area and old stroke in the left frontal lobe - cont statin, asa, plavix - cont aspiration precautions - cont neuro checks - PT / OT #DM II - Resume metformin, patient refusing insulin - A1c 6.9 - monitor BG #HTN - permissive HTN #Hypothyroidism - cont levothyroxine Plan is for rehab Admission and Anticipated Discharge Date Admission Date: February 24, 2024 Subjective patient seen and examined, no new complaints, says she feels better Review of Systems Review of Systems: All systems reviewed are negative, apart from the ones contained in the history. Physical Exam Physical Exam: The patient is awake, alert and oriented 3, well developed and well nourished, normocephalic and atraumatic, lying in bed and in no acute distress. HEENT--PERRL, EOMI, mucous membranes and oropharynx mildly dry Neck--supple. No JVD. No bruits. Thyroid normal, trachea midline, no adenopathy. Heart--normal S1 and S2. No murmurs, rubs or gallops. Lungs--clear bilaterally, no respiratory distress, no accessory muscle use. Abdomen--normal bowel sounds and soft. Extremities--no cyanosis or clubbing. No edema. Dermatologic--normal skin turgor, normal color, no abnormal lymph nodes, no rash. Neurologic--cranial nerves II through XII grossly intact. Rheumatologic--normal range of motion. Psychiatric--normal affect. Results & Data Results & Data Vital Signs (Past 12 Hours) Vital Signs Temp Pulse Pulse Resp BP BP Pulse Ox 02/27/24 12:49 98.1 F 02/27/24 12:48 95 H 22 130/83 95 02/27/24 08:00 02/27/24 07:23 98.2 F 100 H 20 127/94 95 02/27/24 07:00 98.1 F 88 28 H 150/82 H 93 02/27/24 04:00 98.1 F 98 H 21 149/88 H 93 02/27/24 04:00 Pulse Ox O2 Del Method O2 Del Method 02/27/24 12:49 02/27/24 12:48 Room Air 02/27/24 08:00 Room Air 02/27/24 07:23 Room Air 02/27/24 07:00 Room Air 02/27/24 04:00 Room Air 02/27/24 04:00 96 Oxymask PG Care Time/CCT Total # of Minutes Spent Total Time Spent with Patient: Total time spent is greater than 50% in coordination of care (as documented) at patient's floor/unit and/or counseling patient: Coding Level of Care Code 58012 SUB INP/OBS CARE 2/35MIN Diagnoses Acute CVA (cerebrovascular accident) I63.9 Time Spent (min) 35
[2024-02-27] MEDS: metFORMIN HCL 500 MG TAB PO SCH (17:29)
[2024-02-28] MEDS: DOCUSATE SODIUM 100 MG CAP PO PRN (08:28)
--- NOTE | 2024-02-28 11:25 | XRay Report ---
XR shoulder LT min 2V routine HISTORY: 74 years-old Female pain acute left shoulder pain without reported trauma COMPARISON: Chest radiographs 06/08/2023 TECHNIQUE: 3 views of the left shoulder FINDINGS: Mild AC joint with moderate glenohumeral osteoarthritis. Loose bodies project over the joint space an d along the biceps tendon measuring up to 1.3 cm. No acute fracture or dislocation. Additional partia lly imaged loose bodies within the right subscapularis recess. The imaged lung haney appear clear. IMPRESSION: 1. No acute fracture or dislocation. 2. Moderate osteoarthritis with intra-articular loose bodies. ACT 112: Negative or not required by law. The above report was generated using voice recognition software. It may contain grammatical, syntax o r spelling errors. Electronically signed by: Kris Amador M.D. 02/28/2024 11:23 AM
--- NOTE | 2024-02-28 11:40 | Hospitalist Progress Note ---
Date of Service February 28, 2024 Assessment & Plan (1) Acute CVA (cerebrovascular accident): (2) Osteoarthritis: (3) T2DM (type 2 diabetes mellitus): (4) Hypertension: Plan 74 yo F with PMHx of DM II, HTN, Hypothyroidism, GERD brought to the ER for the evaluation of expressive aphasia x48 hrs. Acute ischemic CVA - expressive aphasia with mild right upper extremity weakness, she is able to repeat words, but not able to express her own independent thoughts - NCCT head, CTA head / neck unremarkable for any acute pathology - teleneuro recs DAPT, on asp / plavix at this time - neurology recs apprecaited - MRI brain shows new stroke in the left holden radiata area and old stroke in the left frontal lobe - cont statin, asa, plavix - cont aspiration precautions - cont neuro checks - PT / OT #DM II - Resume metformin, patient refusing insulin - A1c 6.9 - monitor BG #HTN - permissive HTN #Hypothyroidism - cont levothyroxine Osteoarthritis complains of left and right shoulder pain Left shoulder x ray shos evidence of osteoarthritis pain mgt Plan is for rehab , prefers [facility] Admission and Anticipated Discharge Date Admission Date: February 24, 2024 Subjective patient seen and examined, no new complaints, says she feels better, complains of left shoulder pain Review of Systems Review of Systems: All systems reviewed are negative, apart from the ones contained in the history. Physical Exam Physical Exam: The patient is awake, alert and oriented 3, well developed and well nourished, normocephalic and atraumatic, lying in bed and in no acute distress. HEENT--PERRL, EOMI, mucous membranes and oropharynx mildly dry Neck--supple. No JVD. No bruits. Thyroid normal, trachea midline, no adenopathy. Heart--normal S1 and S2. No murmurs, rubs or gallops. Lungs--clear bilaterally, no respiratory distress, no accessory muscle use. Abdomen--normal bowel sounds and soft. Extremities--no cyanosis or clubbing. No edema. Dermatologic--normal skin turgor, normal color, no abnormal lymph nodes, no rash. Neurologic--cranial nerves II through XII grossly intact. Rheumatologic--normal range of motion. Psychiatric--normal affect. Results & Data Results & Data Vital Signs (Past 12 Hours) Vital Signs Temp Pulse Pulse Resp BP BP Pulse Ox 02/28/24 11:07 76 02/28/24 10:41 02/28/24 07:27 98.2 F 67 18 131/84 94 02/28/24 06:00 02/28/24 05:40 98.2 F 79 18 144/85 H 95 02/28/24 02:44 98.1 F 94 H 18 127/74 95 O2 Del Method 02/28/24 11:07 02/28/24 10:41 Room Air 02/28/24 07:27 Room Air 02/28/24 06:00 Room Air 02/28/24 05:40 Room Air 02/28/24 02:44 Room Air PG Care Time/CCT Total # of Minutes Spent Total Time Spent with Patient: Total time spent is greater than 50% in coordination of care (as documented) at patient's floor/unit and/or counseling patient: Coding Level of Care Code 01917 SUB INP/OBS CARE 2/35MIN Diagnoses Acute CVA (cerebrovascular accident) I63.9 Osteoarthritis M19.90 T2DM (type 2 diabetes mellitus) E11.9 Hypertension I10 Time Spent (min) 35
[2024-02-28] MEDS: KETOROLAC TROMETHAMINE 15 MG/ML VIAL IV ONE (12:21)
--- NOTE | 2024-02-28 13:47 | Cardiology Progress Note ---
Date of Service February 28, 2024 Assessment & Plan (1) Stroke: (2) Hyperlipidemia: (3) Hypertension: Plan 1. Cryptogenic stroke: The cause of stroke appears unknown, although her presentation seems a little bit unusual. She does not seem to have atherosclerotic disease to explain it although does have risk factors. We do not have evidence of atrial fibrillation but I agree this is a distinct possibility and I agree with long-term monitoring. She does not appear to have a [id number] shunt to explain a paradoxical embolism. We could consider 30- day monitoring although the yield would be low, an implantable loop recorder is likely the best option. I think we should implant a loop recorder before discharge. I did discuss this with her and her son with her grandson present and they are all in agreement. 2. Hyperlipidemia: Her cholesterol this admission is quite elevated, 237 with an HDL of 42. This yields a non-HDL cholesterol of 195 which is markedly elevated. She does not appear to be on cholesterol medications at home, she is now on rosuvastatin which despite no clear evidence of this being atherosclerotic I agree with this treatment. 3. Hypertension: Her blood pressure seems quite labile both here and prior to admission, she seems to only be on lisinopril as an outpatient and nothing here. I will leave acute treatment of her hypertension to neurology, however over the long run beta-blockade might be beneficial as often labile blood pressure is catecholamine induced. If she has atrial fibrillation this might help as well. She has left ventricular hypertrophy on her prior echocardiogram which is most likely due to longstanding hypertension. This is also often treated with beta- blockade. She will probably go to rehab soon, I will plan loop recorder implantation tomorrow morning. Admission and Anticipated Discharge Date Admission Date: February 24, 2024 Subjective She is doing relatively well, she is texting on her phone and is communicative although not conversational. Physical Exam Physical Exam: Constitutional: Alert, cooperative and in no distress although very sleepy as noted in the HPI. HEENT: Unremarkable Neck: No jugular venous distention, carotid pulses are normal and equal bilaterally without bruits. Pulmonary: Clear to auscultation bilaterally. Cardiac: Regular rhythm with no murmur, gallop or rub. Abdomen: Soft, nontender with normal bowel sounds. Extremities: No edema. Distal pulses intact. Neurologic: No focal findings on brief exam. Skin: No rash, ecchymoses or petechiae. Results & Data Vital Signs (Past 12 Hours) Vital Signs Temp Pulse Resp BP BP Pulse Ox O2 Del Method 02/28/24 07:27 36.8 C 67 18 131/84 94 Room Air 02/28/24 06:00 Room Air 02/28/24 05:40 36.8 C 79 18 144/85 H 95 Room Air 02/28/24 02:44 36.7 C 94 H 18 127/74 95 Room Air Laboratory Results Intake and Output 02/27/24 02/28/24 02/28/24 22:59 06:59 14:59 Intake Total 470 / 470 Balance 470 / 470 Intake: Oral 470 / 470 Other: # Unmeasured Voids 1 2 Diagnostic Findings Telemetry: Sinus rhythm and sinus tachycardia, no significant arrhythmia PG Care Time/CCT Total # of Minutes Spent Total Time Spent with Patient: Total time spent is greater than 50% in coordination of care (as documented) at patient's floor/unit and/or counseling patient: Coding Level of Care Code 60253 SUB INP/OBS CARE 2/35MIN Diagnoses Cerebrovascular accident (CVA), unspecified mechanism I63.9 CVA mechanism: unspecified Hyperlipidemia E78.5 Hypertension I10 (1) Stroke CVA mechanism: unspecified Qualified Code(s): I63.9 - Cerebral infarction, unspecified
[2024-02-29] MEDS: metFORMIN HCL 500 MG TAB PO SCH (08:33)
[2024-02-29 10:20] LABS: Hematocrit (blood only) 42.3 % (37.0-47.0); Hemoglobin 13.7 g/dl (12.0-16.0); Mean Corpuscular Hemoglobin 29.9 pg (25.0-34.0); Mean Corpuscular Hgb Conc 32.4 g/dL (32.0-36.0); Mean Corpuscular Volume 92.4 fL (80.0-100.0); Mean Platelet Volume 11.3 fL (9.4-12.4); Platelet Count 192 K/uL (130-400); RDW Standard Deviation 47.7 fL (36.4-46.3); Red Blood Count 4.58 M/uL (4.20-5.40); White Blood Count 9.94 K/ul (4.8-10.8)
[2024-02-29 10:36] LABS: BUN Creatinine Ratio 19.2 (10-20); Calcium 9.5 mg/dl (8.6-10.3); Potassium 4.1 mmol/L (3.5-5.1)
--- NOTE | 2024-02-29 11:03 | Hospitalist Progress Note ---
Date of Service February 29, 2024 Assessment & Plan (1) Acute CVA (cerebrovascular accident): (2) Osteoarthritis: (3) T2DM (type 2 diabetes mellitus): (4) Hypertension: Plan 74 yo F with PMHx of DM II, HTN, Hypothyroidism, GERD brought to the ER for the evaluation of expressive aphasia x48 hrs. Acute ischemic CVA - No hx of Afib -Will need loop recorder, this has been tentatitively scheduled for 03/01/24 - NCCT head, CTA head / neck unremarkable for any acute pathology - teleneuro recs DAPT, on asp / plavix at this time - neurology recs apprecaited - MRI brain shows new stroke in the left holden radiata area and old stroke in the left frontal lobe - cont statin, asa, plavix - cont aspiration precautions - cont neuro checks - PT / OT #DM II - Resume metformin, patient refusing insulin - A1c 6.9 - monitor BG #HTN - permissive HTN #Hypothyroidism - cont levothyroxine Osteoarthritis complains of left and right shoulder pain Left shoulder x ray shows evidence of osteoarthritis pain mgt Plan is for rehab , prefers [facility] Admission and Anticipated Discharge Date Admission Date: February 24, 2024 Review of Systems Review of Systems: All systems reviewed are negative, apart from the ones contained in the history. Physical Exam Physical Exam: The patient is awake, alert and oriented 3, well developed and well nourished, normocephalic and atraumatic, lying in bed and in no acute distress. HEENT--PERRL, EOMI, mucous membranes and oropharynx mildly dry Neck--supple. No JVD. No bruits. Thyroid normal, trachea midline, no adenopathy. Heart--normal S1 and S2. No murmurs, rubs or gallops. Lungs--clear bilaterally, no respiratory distress, no accessory muscle use. Abdomen--normal bowel sounds and soft. Extremities--no cyanosis or clubbing. No edema. Dermatologic--normal skin turgor, normal color, no abnormal lymph nodes, no rash. Neurologic--cranial nerves II through XII grossly intact. Rheumatologic--normal range of motion. Psychiatric--normal affect. Results & Data Results & Data Vital Signs (Past 12 Hours) Vital Signs Temp Pulse Pulse Resp BP Pulse Ox O2 Del Method 02/29/24 10:52 97.5 F L 74 17 138/78 96 Room Air 02/29/24 07:21 54 L 02/29/24 07:12 97.5 F L 67 18 146/78 H 94 Room Air 02/29/24 03:02 97.9 F 80 18 133/62 96 Room Air 02/28/24 23:28 98.2 F 72 16 140/72 95 Room Air PG Care Time/CCT Total # of Minutes Spent Total Time Spent with Patient: Total time spent is greater than 50% in coordination of care (as documented) at patient's floor/unit and/or counseling patient: Coding Level of Care Code 03948 SUB INP/OBS CARE 2/35MIN Diagnoses Acute CVA (cerebrovascular accident) I63.9 Osteoarthritis M19.90 T2DM (type 2 diabetes mellitus) E11.9 Hypertension I10 Time Spent (min) 35
[2024-02-29] MEDS: NYSTATIN SUSP 500,000 U/5 ML UDC PO SCH (11:25)
[2024-02-29] MEDS: POLYETHYLENE (MIRALAX) 17 GM PACK PO PRN (20:27)
[2024-03-01] MEDS: FIRST - Mouthwash BLM 5 ML UDP PO SCH (03:03)
[2024-03-01 07:25] VITALS: O2SAT 95
--- NOTE | 2024-03-01 09:37 | History & Physical Bridge Note ---
Date of Service March 01, 2024 History & Physical Bridge Note I have examined the patient, reviewed the History & Physical and in the interval since the performance of the History & Physical I have noted the following changes of clinical significance: I reviewed the indications, procedure, risks and alternatives with the patient, and answered all questions. Patient understands and agrees to the procedure. Consent obtained. Sedation will not be used.
[2024-03-01] MEDS: ceFAZolin 330 MG/ML 1 GM VIAL ONE (09:52)
[2024-03-01] MEDS: LIDOCAINE 1% LOCAL 20 ML VIAL ONE (09:53)
--- NOTE | 2024-03-01 10:01 | Electrophysiology Report ---
Date of Service March 01, 2024 Electrophysiology Procedure Electrophysiology Procedure Report Preoperative diagnosis: Cryptogenic stroke Postoperative diagnosis: Same Procedure: Loop recorder implantation Surgeon: Nikolai Currie MD Estimated blood loss: 2 cc Complications: None Disposition: Dry Room Attendant recovery Procedure details: After obtaining informed consent for the procedure, the patient was brought to the laboratory having had nothing by mouth after midnight. The patient was prepped and draped in the standard sterile manner for a loop recorder implantation. An area at the fourth left intercostal space and 1 cm left of the left sternal border was infiltrated with 1% lidocaine local anesthetic and a 0.5 cm incision was made through the skin. Using the loop recorder insertion tool the loop recorder was inserted through the incision at a 45 downward and leftward angle. The incision was closed with a subcutaneous continuous closure of 4-0 Vicryl followed by a running subcuticular skin closure of 4-0 Vicryl. Steri-Strips were applied and bacitracin ointment was placed on the incision. A dressing was applied. [facility] [place] Electrophysiology codes Indication for Procedure (1) Stroke: Implantable Monitors Procedure 1: Implantable Monitors: [id number] Loop Recorder Implant
[2024-03-01] MEDS: SENNA 8.6 MG TAB PO SCH ×2 (11:18)
[2024-03-01 11:23] VITALS: RESP 18; TEMP 97.7
--- NOTE | 2024-03-01 11:59 | Hospitalist Progress Note ---
Date of Service March 01, 2024 Assessment & Plan (1) Acute CVA (cerebrovascular accident): (2) Osteoarthritis: (3) T2DM (type 2 diabetes mellitus): (4) Hypertension: Plan 74 yo F with PMHx of DM II, HTN, Hypothyroidism, GERD brought to the ER for the evaluation of expressive aphasia x48 hrs. Acute ischemic CVA - No hx of Afib -she is now s/p loop recorder insertion - NCCT head, CTA head / neck unremarkable for any acute pathology - teleneuro recs DAPT, on asp / plavix at this time - neurology recs apprecaited - MRI brain shows new stroke in the left holden radiata area and old stroke in the left frontal lobe - cont statin, asa, plavix - cont aspiration precautions - cont neuro checks - PT / OT #DM II - Resume metformin, patient refusing insulin - A1c 6.9 - monitor BG #HTN - permissive HTN #Hypothyroidism - cont levothyroxine Osteoarthritis complains of left and right shoulder pain Left shoulder x ray shows evidence of osteoarthritis pain mgt Plan is for rehab , prefers [facility] Admission and Anticipated Discharge Date Admission Date: February 24, 2024 Subjective patient got her loop recorder Review of Systems Review of Systems: All systems reviewed are negative, apart from the ones contained in the history. Physical Exam Physical Exam: The patient is awake, alert and oriented 3, well developed and well nourished, normocephalic and atraumatic, lying in bed and in no acute distress. HEENT--PERRL, EOMI, mucous membranes and oropharynx mildly dry Neck--supple. No JVD. No bruits. Thyroid normal, trachea midline, no jourdan nopathy. Heart--normal S1 and S2. No murmurs, rubs or gallops. Lungs--clear bilaterally, no respiratory distress, no accessory muscle use. Abdomen--normal bowel sounds and soft. Extremities--no cyanosis or clubbing. No edema. Dermatologic--normal skin turgor, normal color, no abnormal lymph nodes, no rash. Neurologic--cranial nerves II through XII grossly intact. Rheumatologic--normal range of motion. Psychiatric--normal affect. Results & Data Results & Data Vital Signs (Past 12 Hours) Vital Signs Temp Pulse Pulse Resp BP Pulse Ox O2 Del Method 01/10/25 11:00 97.7 F 72 18 121/75 95 Room Air 03/01/24 09:25 77 16 124/80 95 Room Air 03/01/24 07:24 97.9 F 71 17 143/80 H 95 Room Air 03/01/24 07:16 89 03/01/24 02:37 98.4 F 85 17 142/68 H 97 Room Air PG Care Time/CCT Total # of Minutes Spent Total Time Spent with Patient: Total time spent is greater than 50% in coordination of care (as documented) at patient's floor/unit and/or counseling patient: Coding Level of Care Code 61390 SUB INP/OBS CARE 2/35MIN Diagnoses Acute CVA (cerebrovascular accident) I63.9 Osteoarthritis M19.90 T2DM (type 2 diabetes mellitus) E11.9 Hypertension I10 Time Spent (min) 35
--- NOTE | 2024-03-01 14:14 | Discharge Summary ---
Date of Service March 01, 2024 Admission HPI Per Admitting Provider This is a 74-year-old female who has approximately 48-hour history of expressive aphasia/word finding difficulty. Presented to the ER today for further evaluation and treatment. In the emergency department she had a Noncon CT of the brain which was negative for acute findings. We are called entertain admission. We recommended stat CTAs of the head and neck and consultation with teleneurology/telestroke for ant iplatelet recommendations prior to admission. CTAs of the head and neck were negative for acute findings or critical stenoses. ER provider did speak with telestroke on-call who is recommending dual antiplatelet therapy therefore the patient was loaded with Plavix 300 and aspirin. Will continue the aspirin and Plavix daily. We have added statin therapy. Will do permissive hypertension for another 24 hours until we get the MRI results. Do an echocardiogram in the morning and consult neurology formally. Admission Exam (Per Admitting) Constitutional The patient is awake, alert and oriented 3, well developed and well nourished, normocephalic and atraumatic, lying in bed and in no acute distress. HEENT--PERRL, EOMI, mucous membranes and oropharynx mildly dry Neck--supple. No JVD. No bruits. Thyroid normal, trachea midline, no adenopathy. Heart--normal S1 and S2. No murmurs, rubs or gallops. Lungs--clear bilaterally, no respiratory distress, no accessory muscle use. Abdomen--normal bowel sounds and soft. Extremities--no cyanosis or clubbing. No edema. Dermatologic--normal skin turgor, normal color, no abnormal lymph nodes, no rash. Neurologic--cranial nerves II through XII grossly intact. Rheumatologic--normal range of motion. Psychiatric--normal affect. Discharge Data Consultations 02/24/24 17:12 ED Decision to Admit Stat 02/24/24 19:28 Consult Neurology Routine 02/25/24 04:20 Consult Field Sales Agent Routine 02/25/24 06:34 Consult Cardiology Routine Procedures Performed Operation Date: 03/01/24 10:00 Actual Procedures p Implant Cardiac Event Recorder - Nikolai Currie MD Hospital Course (1) Acute CVA (cerebrovascular accident): (2) Osteoarthritis: (3) T2DM (type 2 diabetes mellitus): (4) Hypertension: Plan 74 yo F with PMHx of DM II, HTN, Hypothyroidism, GERD brought to the ER for the evaluation of expressive aphasia x48 hrs. Acute ischemic CVA - No hx of Afib -she is now s/p loop recorder insertion - NCCT head, CTA head / neck unremarkable for any acute pathology - teleneuro recs DAPT, on asp / plavix at this time - neurology recs apprecaited - MRI brain shows new stroke in the left holden radiata area and old stroke in the left frontal lobe - cont statin, asa, plavix - cont aspiration precautions - cont neuro checks - PT / OT #DM II - Resume metformin, patient refusing insulin - A1c 6.9 - monitor BG #HTN - permissive HTN #Hypothyroidism - cont levothyroxine Osteoarthritis complains of left and right shoulder pain Left shoulder x ray shows evidence of osteoarthritis pain mgt Plan is for outpatient PT/OT Coding Level of Care Code 94441 INP/OBS DISCH >30 MIN Diagnoses Acute CVA (cerebrovascular accident) I63.9 Osteoarthritis M19.90 T2DM (type 2 diabetes mellitus) E11.9 Hypertension I10 Time Spent (min) 35
[2024-03-01 14:45] VITALS: BP 127/74; PULSE 72
== END 2024-03-01 15:52 | disposition home or self-care (01) | DRG 66 ==
LOC: ED 15:47 → EDINP 19:24 → SUATTDRO 19:24 → 1E 19:50 → 2S 02-28 05:57